=== PATIENT | female | born 1950 | race African-American/Black ===

== ENCOUNTER 2023-04-06 10:14 | Emergency (ER) | payer OTHER ==
--- OUTSIDE RECORDS SUMMARY | 2023-04-06 10:25 | XMS REPORT | Continuity of Care Document ---
:1950 Author Organization [facility] t Address [address] [place] [address] [address] [place] [address] Care Team Providers Name Role Phone Gustabo Muller MD Primary Care Physician AMILCAR MONAHAN Attending Clinician Unavailable JEFFREY MEJIA Attending Clinician Unavailable GUSTABO MULLER Attending Clinician Unavailable 2, [facility] Attending Clinician Unavailable Gustabo Muller MD Attending Clinician Sophia Pulido MD Attending Clinician Unknown, Attending Attending Clinician Unavailable SOPHIA PULIDO Attending Clinician Unavailable JOAO MOSES Attending Clinician Unavailable Joao Moses PA-C Attending Clinician Doctor Unassigned, [place] Attending Clinician Unavailable Marla Vernon MD Attending Clinician DEYA TAYLOR Attending Clinician Unavailable Deya Taylor MD Attending Clinician FAREED DE LEON Attending Clinician Unavailable Fareed De Leon MD Attending Clinician Tyron López CRNA Attending Clinician Britney Monsalve MD Attending Clinician [phone] Pob, [facility] Main Attending Clinician Unavailable Lab, Ang - Db Attending Clinician Unavailable MARLA VERNON Attending Clinician Unavailable NurseChris Attending Clinician Unavailable Emily Beltre MD Attending Clinician ELDA JARAMILLO Attending Clinician Unavailable Provider, [facility] Attending Clinician Unavailable Mandy Voss Attending Clinician MANDY SCHWARTZ Attending Clinician Unavailable Amilcar Monahan MD Attending Clinician Only, [facility] Test Attending Clinician Unavailable Jen Hills RN, Joao Attending Clinician Unavailable Lab, [facility] Fam Pob I Attending Clinician Unavailable Matilde Granado MD Attending Clinician Gramm PAMELLA, Kathy Alfaro Attending Clinician AMILCAR MONAHAN Admitting Clinician Unavailable JOAO MOSES Admitting Clinician Unavailable DEYA TAYLOR Admitting Clinician Unavailable FAREED DE LEON Admitting Clinician Unavailable Fareed De Leon MD Admitting Clinician Amilcar Monahan MD Admitting Clinician Matilde Granado MD Admitting Clinician Payers Payer Name Policy Type Policy Number Effective Date Expiration Date Gentry bella CRYSTAL/DENISA [id number] 2019 MEDICARE ADVANTAGE 00:00:00 Problems Condition Condition Condition Status Onset Resolution Last Treating Co mments Source Name Details Category Date Date Treatment Clinician Date Low Low Disease Active Univers vitamin D vitamin D 2-24 ity of level level 00:00: [place] [facility] Dizzy Dizzy Disease Active 0 Univers spells spells 5-24 ity of 00:00: [place] [facility] Chronic Chronic Disease Active 0 Univers allergic allergic 5-24 ity of rhinitis rhinitis 00:00: [place] 00 Medical Branch Chronic Chronic Disease Active 0 Univers midline midline 5-24 ity of low back low back 00:00: [place] pain pain 00 Medical without without Branch sciatica sciatica Arthritis, Arthritis, Disease Active 0 U nivers multiple multiple 5-24 ity of joint joint 00:00: [place] involvemen involvemen 00 Me dical t t Branch Gastroesop Gastroesop Disease Active 0 U nivers hageal hageal 5-24 ity of reflux reflux 00:00: [place] disease, disease, 00 Medica l unspecifie unspecifie Br anch d whether d whether esophagiti esophagiti s present s present Primary Primary Disease Active Univers insomnia insomnia -24 ity of 00:00: [place] [facility] Vertigo Vertigo Disease Active Univers 5-24 ity of 00:00: [place] [facility] Situationa Situationa Disease Active U nivers l mixed l mixed 01-23 ity of anxiety anxiety 00:00: [place] and and Medical depressive depressive Br anch disorder disorder Grief Grief Disease Active Univers 01-23 ity of 00:00: [place] [facility] Mass of Mass of Disease Active Overview: Univ ers subcutaneo subcutaneo 12-23 Formattin ity of us tissue us tissue 00:00: g of this [place] of back of back 00 note Medical might be Branch different from the original. Added automatic ally from request for surgery [id number] JÚNIOR JÚNIOR Disease Active Overview: Univer s (stress (stress 09-29 Formattin ity o f urinary urinary 00:00: g of this [place] incontinen incontinen 00 note Me dical ce, ce, might be Branch female) female) different from the original. Added automatic ally from request for surgery [id number] Cerebral Cerebral Disease Active Unive rs microvascu microvascu 6-21 it y of lar lar 00:00: [place] disease disease Medical Branch Chiari I Chiari I Disease Active Unive rs malformati malformati 6-21 it y of on on 00:00: [place] [facility] History of History of Disease Active U nivers total total 3-28 ity of hysterecto hysterecto 00:00[place] my with no my with no 00 Me dical history of history of Br anch abnormal abnormal cervical cervical Papanicola Papanicola ou smear ou smear Well woman Well woman Disease Active U nivers exam with exam with 3-28 ity of routine routine 00:00: [place] gynecologi gynecologi 00 Me dical zofia exam zofia exam Branch Hyperchole Hyperchole Disease Active U nivers sterolemia sterolemia 1-18 it y of 00:00: [place] [facility] Cataracts, Cataracts, Disease Active U nivers bilateral bilateral 1-09 ity of 00:00: [place] [facility] Diet-contr Diet-contr Disease Active U jesica olled type olled type 7-11 it y of 2 diabetes 2 diabetes 00:00[place] mellitus mellitus 00 [facility] [place] Essential Essential Disease Active Uni vers hypertensi hypertensi 3-10 it y of on on 00:00: [place] 00 Medical [place] Allergies, Adverse Reactions, Alerts Allergy Allergy Status Severity Reaction(s) Onset Inactive Treating Comm ents Source Name Type Date Date Clinician LISINOPR DRUG Active Dizziness Unive rs IL INGREDI 7- ity of 00:00: [place] [facility] Lisinopr Propensi Active Dizziness Uni vers il ty to 7 ity of adverse 00:00: [place] reaction [facility] s Branch CODEINE DRUG Active Unknown-Cmnt 2012-05 Uni vers INGREDI 1-20 ity of 00:00: [place] [facility] [place] Codeine Propensi Active Unknown - 2012-05 Univ ers ty to See comments -20 ity of adverse 00:00: [place] reaction [facility] s [place] Social History Social Habit Start Date Stop Date Quantity Comments Source Gender identity [facility]it y of [facility] intake 2023-03-14 2023-03-14 Current University of 00:00:00 00:00:00 non-drinker of [facility] alcohol [place] (finding) Exposure to 2022-07-10 2022-07-20 Not sure [facility] SARS-CoV-2 (event) 00:00:00 09:33:[address] [facility] History of Social 2022-07-17 2022-07-17 Univers ity of function 00:00:00 00:00:[address] [facility] Tobacco use and 2022-01-14 2022-01-14 Smokeless Universit y of exposure 00:00:00 00:00:00 tobacco non-user [facility] Sex Ass[birth year] At [birth year] Universit y of 00:00:00 00:00:[address] [facility] Smoking Status Start Date Stop Date Source Never smoked tobacco [facility] Medications Ordered Filled Start Stop Current Ordering Indication Dosage Frequency Signature Comments Components Source Medication Medication Date Date Medication? Clinician (SIG) Name Name spring 2022-05- No [id number] 40mg Univers ne 03-14 ity of acetonide 19:00: 18:08 [place] (KENALOG) 00 :00 Medical injection Branch 40 mg triamcinolo 2022-05- No [id number] 40mg 40 mg, Univers ne 03-14 Intramuscu ity of acetonide 19:00: 18:08 lar, ONCE, [place] (KENALOG) 00 :00 1 dose, On Medi zofia injection Sun Branch 40 mg 03/14/23 at 1400, Routine predniSONE 2022-05- Yes [id number] Take 4 Univers 10 mg 0-22 11-04 tablets by ity of tablet 00:00: 04:59 mouth [place] 00 :00 daily for Medical 2 days, Branch THEN 2 tablets daily for 5 days, THEN 1 tablet daily for 5 days. citalopram 2022-05 Yes [id number] 10mg Take 1 Univers 10 mg 0-04 tablet by ity of tablet 00:00: mouth in [place] 00 the Medical morning. Branch meclizine 2022-05 Yes [id number] 25mg Take 1 U nivers 25 mg 0-04 tablet by ity of tablet 00:00: mouth 3 [place] 00 (three) Medical times Branch daily as needed for Dizziness. losartan 25 2022-05 Yes [id number] 12.5mg Take 0.5 Univers mg tablet 0-04 9101 tablets by ity of 00:00: mouth in [place] 00 the Medical morning. Branch citalopram 2022-05 Yes [id number] 10mg Take 1 Univers 10 mg 0-04 tablet by ity of tablet 00:00: mouth in [place] 00 the Medical morning. Branch meclizine 2022-05 Yes [id number] 25mg Take 1 U nivers 25 mg 0-04 tablet by ity of tablet 00:00: mouth 3 [place] 00 (three) Medical times Branch daily as needed for Dizziness. losartan 25 2022-05 Yes [id number] 12.5mg Take 0.5 Univers mg tablet 0-04 9101 tablets by ity of 00:00: mouth in [place] 00 the Medical morning. Branch citalopram 2022-05 Yes [id number] 10mg Take 1 Univers 10 mg 0-04 tablet by ity of tablet 00:00: mouth in [place] 00 the Medical morning. Branch meclizine 2022-05 Yes [id number] 25mg Take 1 U nivers 25 mg 0-04 tablet by ity of tablet 00:00: mouth 3 [place] 00 (three) Medical times [place] daily as needed for Dizziness. losartan 2022-05 Yes [id number] 12.5mg Take 0.5 Univers mg tablet 0-04 9101 tablets by ity of 00:00: mouth in [place] the Medical morning. Branch citalopram 2022-05 Yes [id number] 10mg Take 1 Univers 10 mg 0-04 tablet by ity of tablet 00:00: mouth in [place] the Medical morning. Branch meclizine 2022-05 Yes [id number] 25mg Take 1 U nivers 25 mg 0-04 tablet by ity of tablet 00:00: mouth 3 [place] (three) Medical times [place] daily as needed for Dizziness. losartan 2022-05 Yes [id number] 12.5mg Take 0.5 Univers mg tablet 0-04 9101 tablets by ity of 00:00: mouth in [place] the Medical morning. Branch citalopram 2022-05 Yes [id number] 10mg Take 1 Univers 10 mg 0-04 tablet by ity of tablet 00:00: mouth in [place] the Medical morning. Branch meclizine 2022-05 Yes [id number] 25mg Take 1 U nivers 25 mg 0-04 tablet by ity of tablet 00:00: mouth 3 [place] [address] (three) Medical times [place] daily as needed for Dizziness. losartan 2022-05 Yes [id number] 12.5mg Take 0.5 Univers mg tablet 0-04 9101 tablets by ity of 00:00: mouth in [place] the Medical morning. Branch ROSUVASTATI 2022-05 Yes [id number] 5mg TAKE 1 Univers N 5 mg 0-03 TABLET BY ity of tablet 00:00: MOUTH AT [place] [address] BEDTIME Medical Branch ROSUVASTATI 2022-05 Yes [id number] 5mg TAKE 1 Univers N 5 mg 0-03 TABLET BY ity of tablet 00:00: MOUTH AT [place] [address] BEDTIME Medical Branch ROSUVASTATI 2022-05 Yes [id number] 5mg TAKE 1 Univers N 5 mg 0-03 TABLET BY ity of tablet 00:00: MOUTH AT [place] [address] BEDTIME Medical Branch ROSUVASTATI 2023-1 Yes [id number] 5mg TAKE 1 Univers N 5 mg 0-03 TABLET BY ity of tablet 00:00: MOUTH AT [place] BEDTIME Medical Branch ROSUVASTATI 3-1 Yes [id number] 5mg TAKE 1 Univers N 5 mg 0-03 TABLET BY ity of tablet 00:00: MOUTH AT [place] [facility] Medical Branch ROSUVASTATI 2022-1 Yes [id number] 5mg TAKE 1 Univers N 5 mg 0-03 TABLET BY ity of tablet 00:00: MOUTH AT [address] Branch Blood-Gluco 2023-0 Yes Use as Univ ers se Meter 3-21 directed ity of (ACCU-CHEK 00:00: [place] GUIDE Medical GLUCOSE Branch METER) Misc Blood-Gluco 2023-0 Yes Use as Univ ers se Meter 3-21 directed ity of (ACCU-CHEK 00:00: [place] GUIDE Medical GLUCOSE Branch METER) Misc Blood-Gluco 2023-0 Yes Use as Univ ers se Meter 3-21 directed ity of (ACCU-CHEK 00:00: [place] GUIDE Medical GLUCOSE Branch METER) Misc Blood-Gluco 2023-0 Yes Use as Univ ers se Meter 3-21 directed ity of (ACCU-CHEK 00:00: [place] GUIDE Medical GLUCOSE Branch METER) Misc Blood-Gluco 2023-0 Yes Use as Univ ers se Meter 3-21 directed ity of (ACCU-CHEK 00:00: [place] GUIDE Medical GLUCOSE Branch METER) Misc Blood-Gluco 2023-0 Yes Use as Univ ers se Meter 3-21 directed ity of (ACCU-CHEK 00:00: [place] GUIDE Medical GLUCOSE Branch METER) Misc Blood-Gluco 2023-0 Yes Use as Univ ers se Meter 3-21 directed ity of (ACCU-CHEK 00:00: [place] GUIDE 00 Medical GLUCOSE Branch METER) Misc Blood-Gluco 2023-0 Yes Use as Univ ers se Meter 3-21 directed ity of (ACCU-CHEK 00:00: [place] GUIDE 00 Medical GLUCOSE Branch METER) Misc Blood-Gluco 2023-0 Yes Use as Univ ers se Meter 3-21 directed ity of (ACCU-CHEK 00:00: [place] GUIDE 00 Medical GLUCOSE Branch METER) Misc Blood-Gluco 2023-0 Yes Use as Univ ers se Meter 3-21 directed ity of (ACCU-CHEK 00:00: [place] GUIDE 00 Medical GLUCOSE Branch METER) Misc Blood-Gluco Yes Use as Univ ers se Meter 3-21 directed ity of (ACCU-CHEK 00:00: [place] [facility] 00 Medical GLUCOSE Branch METER) Misc Blood-Gluco Yes Use as Univ ers se Meter 3-21 directed ity of (ACCU-CHEK 00:00: [facility] 00 Medical GLUCOSE Branch METER) Misc hydroCHLORO Yes [id number] 12.5mg Take 1 Univers thiazide 2-24 tablet by ity of 12.5 mg 00:00: mouth [place] tablet 00 every Medical morning. Branch aspirin 81 Yes [id number] 81mg Take 1 Univers mg chewable 2-24 tablet by ity of tablet 00:00: mouth [place] 00 daily with Medical breakfast. Branch rosuvastati Yes [id number] 5mg Take 1 Univers n 5 mg 2-24 tablet by ity of tablet 00:00: mouth at [place] 00 bedtime. Medical Branch omeprazole Yes [id number] 20mg Take 1 Univers 20 mg 2-24 capsule by ity of capsule 00:00: mouth in [place] 00 the Medical morning. Branch citalopram Yes [id number] 10mg Take 1 Univers 10 mg 2-24 tablet by ity of tablet 00:00: mouth in [place] 00 the Medical morning. Branch Diclofenac Yes [id number] Apply to Univers Sodium 2-24 103 area(s) 4 ity of (VOLTAREN) 00:00: (four) [place] 1 % gel 00 times Medical daily. Branch Apply 4 g qid Lancets Yes [id number] Check Un osmany Misc 2-24 9101 glucose ity of 00:00: once daily [place] 00 before Medical breakfast, Branch Diagnosis code E11.9 blood sugar Yes [id number] Check Univers diagnostic 2-24 9101 glucose ity of (ONETOUCH 00:00: once daily [place] ULTRA BLUE 00 before Medical TEST STRIP) breakfast; Br anch strip Diagnosis code E11.9 meclizine Yes [id number] 25mg Take 1 U nivers 25 mg 2-24 tablet by ity of tablet 00:00: mouth 3 [place] 00 (three) Medical times Branch daily as needed for Dizziness. Lidocaine 5 Yes [id number] Apply to Univers % cream 2-24 103 area(s) 2 ity of 00:00: (two) [place] 00 times Medical daily as Branch needed for Pain (scale 4-6). Apply 5g to affected areas BID PRN hydroCHLORO Yes [id number] 12.5mg Take 1 Univers thiazide 2-24 tablet by ity of 12.5 mg 00:00: mouth [place] tablet 00 every Medical morning. Branch aspirin 81 Yes [id number] 81mg Take 1 Univers mg chewable 2-24 tablet by ity of tablet 00:00: mouth [place] 00 daily with Medical breakfast. Branch rosuvastati Yes [id number] 5mg Take 1 Univers n 5 mg 2-24 tablet by ity of tablet 00:00: mouth at [place] 00 bedtime. Medical Branch omeprazole Yes [id number] 20mg Take 1 Univers 20 mg 2-24 capsule by ity of capsule 00:00: mouth in [place] 00 the Medical morning. Branch citalopram Yes [id number] 10mg Take 1 Univers 10 mg 2-24 tablet by ity of tablet 00:00: mouth in [place] 00 the Medical morning. Branch Diclofenac Yes [id number] Apply to Univers Sodium 2-24 103 area(s) 4 ity of (VOLTAREN) 00:00: (four) [place] 1 % gel 00 times Medical daily. Branch Apply 4 g qid Lancets Yes [id number] Check Un osmany Misc 2-24 9101 glucose ity of 00:00: once daily [place] 00 before Medical breakfast, Branch Diagnosis code E11.9 blood sugar Yes [id number] Check Univers diagnostic 2-24 9101 glucose ity of (ONETOUCH 00:00: once daily [place] ULTRA BLUE 00 before Medical TEST STRIP) breakfast; Br anch strip Diagnosis code E11.9 meclizine Yes [id number] 25mg Take 1 U nivers 25 mg 2-24 tablet by ity of tablet 00:00: mouth 3 [place] 00 (three) Medical times Branch daily as needed for Dizziness. Lidocaine 5 Yes [id number] Apply to Univers % cream 2-24 103 area(s) 2 ity of 00:00: (two) [place] 00 times Medical daily as Branch needed for Pain (scale 4-6). Apply 5g to affected areas BID PRN hydroCHLORO Yes [id number] 12.5mg Take 1 Univers thiazide 2-24 tablet by ity of 12.5 mg 00:00: mouth [place] tablet 00 every Medical morning. Branch aspirin 81 0 Yes [id number] 81mg Take 1 Univers mg chewable 2-24 tablet by ity of tablet 00:00: mouth [place] 00 daily with Medical breakfast. Branch rosuvastati Yes [id number] 5mg Take 1 Univers n 5 mg 2-24 tablet by ity of tablet 00:00: mouth at [place] 00 bedtime. Medical Branch omeprazole Yes [id number] 20mg Take 1 Univers 20 mg 2-24 capsule by ity of capsule 00:00: mouth in [place] 00 the Medical morning. Branch citalopram Yes [id number] 10mg Take 1 Univers 10 mg 2-24 tablet by ity of tablet 00:00: mouth in [place] 00 the Medical morning. Branch Diclofenac Yes [id number] Apply to Univers Sodium 2-24 103 area(s) 4 ity of (VOLTAREN) 00:00: (four) [place] 1 % gel 00 times Medical daily. Branch Apply 4 g qid Lancets Yes [id number] Check Un osmany Misc 2-24 9101 glucose ity of 00:00: once daily [place] 00 before Medical breakfast, Branch Diagnosis code E11.9 blood sugar Yes [id number] Check Univers diagnostic 2-24 9101 glucose ity of (ONETOUCH 00:00: once daily [place] ULTRA BLUE 00 before Medical TEST STRIP) breakfast; Br anch strip Diagnosis code E11.9 meclizine Yes [id number] 25mg Take 1 U nivers 25 mg 2-24 tablet by ity of tablet 00:00: mouth 3 [place] 00 (three) Medical times Branch daily as needed for Dizziness. Lidocaine 5 Yes [id number] Apply to Univers % cream 2-24 103 area(s) 2 ity of 00:00: (two) [place] 00 times Medical daily as Branch needed for Pain (scale 4-6). Apply 5g to affected areas BID PRN hydroCHLORO Yes [id number] 12.5mg Take 1 Univers thiazide 2-24 tablet by ity of 12.5 mg 00:00: mouth [place] tablet 00 every Medical morning. Branch aspirin 81 0 Yes [id number] 81mg Take 1 Univers mg chewable 2-24 tablet by ity of tablet 00:00: mouth [place] 00 daily with Medical breakfast. Branch rosuvastati Yes [id number] 5mg Take 1 Univers n 5 mg 2-24 tablet by ity of tablet 00:00: mouth at [place] 00 bedtime. Medical Branch omeprazole Yes [id number] 20mg Take 1 Univers 20 mg 2-24 capsule by ity of capsule 00:00: mouth in [place] 00 the Medical morning. Branch citalopram Yes [id number] 10mg Take 1 Univers 10 mg 2-24 tablet by ity of tablet 00:00: mouth in [place] 00 the Medical morning. Branch Diclofenac Yes [id number] Apply to Univers Sodium 2-24 103 area(s) 4 ity of (VOLTAREN) 00:00: (four) [place] 1 % gel 00 times Medical daily. Branch Apply 4 g qid Lancets Yes [id number] Check Un osmany Misc 2-24 9101 glucose ity of 00:00: once daily [place] 00 before Medical breakfast, Branch Diagnosis code E11.9 blood sugar 0 Yes [id number] Check Univers diagnostic 2-24 9101 glucose ity of (ONETOUCH 00:00: once daily [place] ULTRA BLUE 00 before Medical TEST STRIP) breakfast; Br anch strip Diagnosis code E11.9 meclizine 0 Yes [id number] 25mg Take 1 U nivers 25 mg 2-24 tablet by ity of tablet 00:00: mouth 3 [place] 00 (three) Medical times Branch daily as needed for Dizziness. Lidocaine 5 0 Yes [id number] Apply to Univers % cream 2-24 103 area(s) 2 ity of 00:00: (two) [place] 00 times Medical daily as Branch needed for Pain (scale 4-6). Apply 5g to affected areas BID PRN hydroCHLORO Yes [id number] 12.5mg Take 1 Univers thiazide 2-24 tablet by ity of 12.5 mg 00:00: mouth [place] tablet 00 every Medical morning. Branch aspirin 81 0 Yes [id number] 81mg Take 1 Univers mg chewable 2-24 tablet by ity of tablet 00:00: mouth [place] 00 daily with Medical breakfast. Branch rosuvastati Yes [id number] 5mg Take 1 Univers n 5 mg 2-24 tablet by ity of tablet 00:00: mouth at [place] 00 bedtime. Medical Branch omeprazole Yes [id number] 20mg Take 1 Univers 20 mg 2-24 capsule by ity of capsule 00:00: mouth in [place] 00 the Medical morning. Branch citalopram Yes [id number] 10mg Take 1 Univers 10 mg 2-24 tablet by ity of tablet 00:00: mouth in [place] 00 the Medical morning. Branch Diclofenac Yes [id number] Apply to Univers Sodium 2-24 103 area(s) 4 ity of (VOLTAREN) 00:00: (four) [place] 1 % gel 00 times Medical daily. Branch Apply 4 g qid Lancets Yes [id number] Check Un osmany Misc 2-24 9101 glucose ity of 00:00: once daily [place] 00 before Medical breakfast, Branch Diagnosis code E11.9 blood sugar Yes [id number] Check Univers diagnostic 2-24 9101 glucose ity of (ONETOUCH 00:00: once daily [place] ULTRA BLUE 00 before Medical TEST STRIP) breakfast; Br anch strip Diagnosis code E11.9 meclizine Yes [id number] 25mg Take 1 U nivers 25 mg 2-24 tablet by ity of tablet 00:00: mouth 3 [place] 00 (three) Medical times Branch daily as needed for Dizziness. Lidocaine 5 Yes [id number] Apply to Univers % cream 2-24 103 area(s) 2 ity of 00:00: (two) [place] 00 times Medical daily as Branch needed for Pain (scale 4-6). Apply 5g to affected areas BID PRN hydroCHLORO Yes [id number] 12.5mg Take 1 Univers thiazide 2-24 tablet by ity of 12.5 mg 00:00: mouth [place] tablet 00 every Medical morning. Branch aspirin 81 Yes [id number] 81mg Take 1 Univers mg chewable 2-24 tablet by ity of tablet 00:00: mouth [place] 00 daily with Medical breakfast. Branch rosuvastati Yes [id number] 5mg Take 1 Univers n 5 mg 2-24 tablet by ity of tablet 00:00: mouth at [place] 00 bedtime. Medical Branch omeprazole Yes [id number] 20mg Take 1 Univers 20 mg 2-24 capsule by ity of capsule 00:00: mouth in [place] 00 the Medical morning. Branch citalopram Yes [id number] 10mg Take 1 Univers 10 mg 2-24 tablet by ity of tablet 00:00: mouth in [place] 00 the Medical morning. Branch Diclofenac Yes [id number] Apply to Univers Sodium 2-24 103 area(s) 4 ity of (VOLTAREN) 00:00: (four) [place] 1 % gel 00 times Medical daily. Branch Apply 4 g qid Lancets Yes [id number] Check Un osmany Misc 2-24 9101 glucose ity of 00:00: once daily [place] 00 before Medical breakfast, Branch Diagnosis code E11.9 blood sugar Yes [id number] Check Univers diagnostic 2-24 9101 glucose ity of (ONETOUCH 00:00: once daily [place] ULTRA BLUE 00 before Medical TEST STRIP) breakfast; Br anch strip Diagnosis code E11.9 meclizine Yes [id number] 25mg Take 1 U nivers 25 mg 2-24 tablet by ity of tablet 00:00: mouth 3 [place] 00 (three) Medical times Branch daily as needed for Dizziness. Lidocaine 5 Yes [id number] Apply to Univers % cream 2-24 103 area(s) 2 ity of 00:00: (two) [place] 00 times Medical daily as Branch needed for Pain (scale 4-6). Apply 5g to affected areas BID PRN hydroCHLORO Yes [id number] 12.5mg Take 1 Univers thiazide 2-24 tablet by ity of 12.5 mg 00:00: mouth [place] tablet 00 every Medical morning. Branch aspirin 81 Yes [id number] 81mg Take 1 Univers mg chewable 2-24 tablet by ity of tablet 00:00: mouth [place] 00 daily with Medical breakfast. Branch rosuvastati Yes [id number] 5mg Take 1 Univers n 5 mg 2-24 tablet by ity of tablet 00:00: mouth at [place] 00 bedtime. Medical Branch omeprazole Yes [id number] 20mg Take 1 Univers 20 mg 2-24 capsule by ity of capsule 00:00: mouth in [place] 00 the Medical morning. Branch citalopram Yes [id number] 10mg Take 1 Univers 10 mg 2-24 tablet by ity of tablet 00:00: mouth in [place] 00 the Medical morning. Branch Diclofenac Yes [id number] Apply to Univers Sodium 2-24 103 area(s) 4 ity of (VOLTAREN) 00:00: (four) [place] 1 % gel 00 times Medical daily. Branch Apply 4 g qid Lancets Yes [id number] Check Un osmany Misc 2-24 9101 glucose ity of 00:00: once daily [place] 00 before Medical breakfast, Branch Diagnosis code E11.9 blood sugar Yes [id number] Check Univers diagnostic 2-24 9101 glucose ity of (ONETOUCH 00:00: once daily [place] ULTRA BLUE 00 before Medical TEST STRIP) breakfast; Br anch strip Diagnosis code E11.9 meclizine Yes [id number] 25mg Take 1 U nivers 25 mg 2-24 tablet by ity of tablet 00:00: mouth 3 [place] 00 (three) Medical times Branch daily as needed for Dizziness. Lidocaine 5 Yes [id number] Apply to Univers % cream 2-24 103 area(s) 2 ity of 00:00: (two) [place] 00 times Medical daily as Branch needed for Pain (scale 4-6). Apply 5g to affected areas BID PRN hydroCHLORO Yes [id number] 12.5mg Take 1 Univers thiazide 2-24 tablet by ity of 12.5 mg 00:00: mouth [place] tablet 00 every Medical morning. Branch aspirin 81 Yes [id number] 81mg Take 1 [facility] mg chewable 2-24 tablet by ity of tablet 00:00: mouth [place] 00 daily with Medical breakfast. Branch rosuvastati Yes [id number] 5mg Take 1 [facility] n 5 mg 2-24 tablet by ity of tablet 00:00: mouth at [place] 00 bedtime. Medical Branch omeprazole Yes [id number] 20mg Take 1 [facility] 20 mg 2-24 capsule by ity of capsule 00:00: mouth in [place] 00 the Medical morning. Branch citalopram Yes [id number] 10mg Take 1 [facility] 10 mg 2-24 tablet by ity of tablet 00:00: mouth in [place] 00 the Medical morning. Branch Diclofenac Yes [id number] Apply to [facility] Sodium 2-24 103 area(s) 4 ity of (VOLTAREN) 00:00: (four) [place] 1 % gel 00 times Medical daily. Branch Apply 4 g qid Lancets Yes [id number] Check Un osmany Misc 2-24 9101 glucose ity of 00:00: once daily [place] 00 before Medical breakfast, Branch Diagnosis code E11.9 blood sugar Yes [id number] Check [facility] diagnostic 2-24 9101 glucose ity of (ONETOUCH 00:00: once daily [place] ULTRA BLUE 00 before Medical TEST STRIP) breakfast; Br anch strip Diagnosis code E11.9 meclizine Yes [id number] 25mg Take 1 [facility] 25 mg 2-24 tablet by ity of tablet 00:00: mouth 3 [place] 00 (three) Medical times Branch daily as needed for Dizziness. Lidocaine 5 Yes [id number] Apply to [facility] % cream 2-24 103 area(s) 2 ity of 00:00: (two) [place] 00 times Medical daily as Branch needed for Pain (scale 4-6). Apply 5g to affected areas BID PRN hydroCHLORO Yes [id number] 12.5mg Take 1 [facility] thiazide 2-24 tablet by ity of 12.5 mg 00:00: mouth [place] tablet 00 every Medical morning. Branch aspirin 81 0 Yes [id number] 81mg Take 1 [facility] mg chewable 2-24 tablet by ity of tablet 00:00: mouth [place] 00 daily with Medical breakfast. Branch rosuvastati Yes [id number] 5mg Take 1 [facility] n 5 mg 2-24 tablet by ity of tablet 00:00: mouth at [place] 00 bedtime. Medical Branch omeprazole Yes [id number] 20mg Take 1 [facility] 20 mg 2-24 capsule by ity of capsule 00:00: mouth in [place] 00 the Medical morning. Branch citalopram Yes [id number] 10mg Take 1 [facility] 10 mg 2-24 tablet by ity of tablet 00:00: mouth in [place] 00 the Medical morning. Branch Diclofenac Yes [id number] Apply to [facility] Sodium 2-24 103 area(s) 4 ity of (VOLTAREN) 00:00: (four) [place] 1 % gel 00 times Medical daily. Branch Apply 4 g qid Lancets Yes [id number] Check Un osmany Misc 2-24 9101 glucose ity of 00:00: once daily [place] 00 before Medical breakfast, Branch Diagnosis code E11.9 blood sugar Yes [id number] Check [facility] diagnostic 2-24 9101 glucose ity of (ONETOUCH 00:00: once daily [place] ULTRA BLUE 00 before Medical TEST STRIP) breakfast; Br anch strip Diagnosis code E11.9 meclizine Yes [id number] 25mg Take 1 [facility] 25 mg 2-24 tablet by ity of tablet 00:00: mouth 3 [place] 00 (three) Medical times Branch daily as needed for Dizziness. Lidocaine 5 Yes [id number] Apply to [facility] % cream 2-24 103 area(s) 2 ity of 00:00: (two) [place] 00 times Medical daily as Branch needed for Pain (scale 4-6). Apply 5g to affected areas BID PRN hydroCHLORO Yes [id number] 12.5mg Take 1 [facility] thiazide 2-24 tablet by ity of 12.5 mg 00:00: mouth [place] tablet 00 every Medical morning. Branch aspirin 81 0 Yes [id number] 81mg Take 1 [facility] mg chewable 2-24 tablet by ity of tablet 00:00: mouth [place] 00 daily with Medical breakfast. Branch rosuvastati Yes [id number] 5mg Take 1 [facility] n 5 mg 2-24 tablet by ity of tablet 00:00: mouth at [place] 00 bedtime. Medical Branch omeprazole Yes [id number] 20mg Take 1 [facility] 20 mg 2-24 capsule by ity of capsule 00:00: mouth in [place] 00 the Medical morning. Branch citalopram Yes [id number] 10mg Take 1 [facility] 10 mg 2-24 tablet by ity of tablet 00:00: mouth in [place] 00 the Medical morning. Branch Diclofenac Yes [id number] Apply to [facility] Sodium 2-24 103 area(s) 4 ity of (VOLTAREN) 00:00: (four) [place] 1 % gel 00 times Medical daily. Branch Apply 4 g qid Lancets Yes [id number] Check Un osmany Misc 2-24 9101 glucose ity of 00:00: once daily [place] 00 before Medical breakfast, Branch Diagnosis code E11.9 blood sugar Yes [id number] Check [facility] diagnostic 2-24 9101 glucose ity of (ONETOUCH 00:00: once daily [place] ULTRA BLUE 00 before Medical TEST STRIP) breakfast; Br anch strip Diagnosis code E11.9 meclizine Yes [id number] 25mg Take 1 [facility] 25 mg 2-24 tablet by ity of tablet 00:00: mouth 3 [place] 00 (three) Medical times Branch daily as needed for Dizziness. Lidocaine 5 Yes [id number] Apply to [facility] % cream 2-24 103 area(s) 2 ity of 00:00: (two) [place] 00 times Medical daily as Branch needed for Pain (scale 4-6). Apply 5g to affected areas BID PRN hydroCHLORO Yes [id number] 12.5mg Take 1 [facility] thiazide 2-24 tablet by ity of 12.5 mg 00:00: mouth [place] tablet 00 every Medical morning. Branch aspirin 81 Yes [id number] 81mg Take 1 [facility] mg chewable 2-24 tablet by ity of tablet 00:00: mouth [place] 00 daily with Medical breakfast. Branch rosuvastati Yes [id number] 5mg Take 1 [facility] n 5 mg 2-24 tablet by ity of tablet 00:00: mouth at [place] 00 bedtime. Medical Branch omeprazole Yes [id number] 20mg Take 1 [facility] 20 mg 2-24 capsule by ity of capsule 00:00: mouth in [place] 00 the Medical morning. Branch citalopram Yes [id number] 10mg Take 1 [facility] 10 mg 2-24 tablet by ity of tablet 00:00: mouth in [place] 00 the Medical morning. Branch Diclofenac Yes [id number] Apply to [facility] Sodium 2-24 103 area(s) 4 ity of (VOLTAREN) 00:00: (four) [place] 1 % gel 00 times Medical daily. Branch Apply 4 g qid Lancets Yes [id number] Check Un osmany Misc 2-24 9101 glucose ity of 00:00: once daily [place] 00 before Medical breakfast, Branch Diagnosis code E11.9 blood sugar Yes [id number] Check [facility] diagnostic 2-24 9101 glucose ity of (ONETOUCH 00:00: once daily [place] ULTRA BLUE 00 before Medical TEST STRIP) breakfast; Br anch strip Diagnosis code E11.9 meclizine Yes [id number] 25mg Take 1 [facility] 25 mg 2-24 tablet by ity of tablet 00:00: mouth 3 [place] 00 (three) Medical times Branch daily as needed for Dizziness. Lidocaine 5 Yes [id number] Apply to [facility] % cream 2-24 103 area(s) 2 ity of 00:00: (two) [place] 00 times Medical daily as Branch needed for Pain (scale 4-6). Apply 5g to affected areas BID PRN hydroCHLORO 0 Yes [id number] 12.5mg Take 1 [facility] thiazide 2-24 tablet by ity of 12.5 mg 00:00: mouth [place] tablet 00 every Medical morning. Branch aspirin 81 0 Yes [id number] 81mg Take 1 [facility] mg chewable 2-24 tablet by ity of tablet 00:00: mouth [place] 00 daily with Medical breakfast. Branch omeprazole 2022-0 Yes [id number] 20mg Take 1 [facility] 20 mg 2-24 capsule by ity of capsule 00:00: mouth in [place] 00 the Medical morning. Branch citalopram Yes [id number] 10mg Take 1 [facility] 10 mg 2-24 tablet by ity of tablet 00:00: mouth in [place] 00 the Medical morning. Branch Diclofenac Yes [id number] Apply to [facility] Sodium 2-24 103 area(s) 4 ity of (VOLTAREN) 00:00: (four) [place] 1 % gel 00 times Medical daily. Branch Apply 4 g qid Lancets 2022- Yes [id number] Check Un osmany Misc 2-24 9101 glucose ity of 00:00: once daily [place] 00 before Medical breakfast, Branch Diagnosis code E11.9 blood sugar 2022-0 Yes [id number] Check [facility] diagnostic 2-24 9101 glucose ity of (ONETOUCH 00:00: once daily [place] ULTRA BLUE 00 before Medical TEST STRIP) breakfast; Br anch strip Diagnosis code E11.9 meclizine 2022-0 Yes [id number] 25mg Take 1 [facility] nivers 25 mg 2-24 tablet by ity of tablet 00:00: mouth 3 [place] 00 (three) Medical times Branch daily as needed for Dizziness. Lidocaine 5 2022-0 Yes [id number] Apply to [facility] % cream 2-24 103 area(s) 2 ity of 00:00: (two) [place] 00 times Medical daily as Branch needed for Pain (scale 4-6). Apply 5g to affected areas BID PRN hydroCHLORO 0 Yes [id number] 12.5mg Take 1 [facility] thiazide 2-24 tablet by ity of 12.5 mg 00:00: mouth [place] tablet 00 every Medical morning. Branch aspirin 81 2022-0 Yes [id number] 81mg Take 1 [facility] mg chewable 2-24 tablet by ity of tablet 00:00: mouth [place] 00 daily with Medical breakfast. Branch Diclofenac 2022-0 Yes [id number] Apply to [facility] Sodium 2-24 103 area(s) 4 ity of (VOLTAREN) 00:00: (four) [place] 1 % gel 00 times Medical daily. Branch Apply 4 g qid Lancets 2022-0 Yes [id number] Check Un osmany Misc 2-24 9101 glucose ity of 00:00: once daily [place] 00 before Medical breakfast, Branch Diagnosis code E11.9 blood sugar 2022-0 Yes [id number] Check [facility] diagnostic 2-24 9101 glucose ity of (ONETOUCH 00:00: once daily [place] ULTRA BLUE 00 before Medical TEST STRIP) breakfast; Br anch strip Diagnosis code E11.9 Lidocaine 5 2022-0 Yes [id number] Apply to [facility] % cream 2-24 103 area(s) 2 ity of 00:00: (two) [place] 00 times Medical daily as Branch needed for Pain (scale 4-6). Apply 5g to affected areas BID PRN hydroCHLORO 2022-0 Yes [id number] 12.5mg Take 1 [facility] thiazide 2-24 tablet by ity of 12.5 mg 00:00: mouth [place] tablet 00 every Medical morning. Branch aspirin 81 2022-0 Yes [id number] 81mg Take 1 [facility] mg chewable 2-24 tablet by ity of tablet 00:00: mouth [place] 00 daily with Medical breakfast. Branch Diclofenac 2022-0 Yes [id number] Apply to [facility] Sodium 2-24 103 area(s) 4 ity of (VOLTAREN) 00:00: (four) [place] 1 % gel 00 times Medical daily. Branch Apply 4 g qid Lancets 2022-0 Yes [id number] Check Un osmany Misc 2-24 9101 glucose ity of 00:00: once daily [place] 00 before Medical breakfast, Branch Diagnosis code E11.9 blood sugar 2022-0 Yes [id number] Check [facility] diagnostic 2-24 9101 glucose ity of (ONETOUCH 00:00: once daily [place] ULTRA BLUE 00 before Medical TEST STRIP) breakfast; Br anch strip Diagnosis code E11.9 Lidocaine 5 2022-0 Yes [id number] Apply to [facility] % cream 2-24 103 area(s) 2 ity of 00:00: (two) [place] 00 times Medical daily as Branch needed for Pain (scale 4-6). Apply 5g to affected areas BID PRN hydroCHLORO 2022-0 Yes [id number] 12.5mg Take 1 [facility] thiazide 2-24 tablet by ity of 12.5 mg 00:00: mouth [place] tablet 00 every Medical morning. Branch aspirin 81 2022-0 Yes [id number] 81mg Take 1 [facility] mg chewable 2-24 tablet by ity of tablet 00:00: mouth [place] 00 daily with Medical breakfast. Branch Diclofenac 2022-0 Yes [id number] Apply to [facility] Sodium 2-24 103 area(s) 4 ity of (VOLTAREN) 00:00: (four) [place] 1 % gel 00 times Medical daily. Branch Apply 4 g qid Lancets 2022-0 Yes [id number] Check Un osmany Misc 2-24 9101 glucose ity of 00:00: once daily [place] 00 before Medical breakfast, Branch Diagnosis code E11.9 blood sugar 2022-0 Yes [id number] Check [facility] diagnostic 2-24 9101 glucose ity of (ONETOUCH 00:00: once daily [place] ULTRA BLUE 00 before Medical TEST STRIP) breakfast; Br anch strip Diagnosis code E11.9 Lidocaine 5 2022-0 Yes [id number] Apply to [facility] % cream 2-24 103 area(s) 2 ity of 00:00: (two) [place] 00 times Medical daily as Branch needed for Pain (scale 4-6). Apply 5g to affected areas BID PRN hydroCHLORO 2022-0 Yes [id number] 12.5mg Take 1 [facility] thiazide 2-24 tablet by ity of 12.5 mg 00:00: mouth [place] tablet 00 every Medical morning. Branch aspirin 81 2022-0 Yes [id number] 81mg Take 1 [facility] mg chewable 2-24 tablet by ity of tablet 00:00: mouth [place] 00 daily with Medical breakfast. Branch Diclofenac 2022-0 Yes [id number] Apply to [facility] Sodium 2-24 103 area(s) 4 ity of (VOLTAREN) 00:00: (four) [place] 1 % gel 00 times Medical daily. Branch Apply 4 g qid Lancets 2022-0 Yes [id number] Check Un osmany Misc 2-24 9101 glucose ity of 00:00: once daily [place] 00 before Medical breakfast, Branch Diagnosis code E11.9 blood sugar 2022-0 Yes [id number] Check [facility] diagnostic 2-24 9101 glucose ity of (ONETOUCH 00:00: once daily [place] ULTRA BLUE 00 before Medical TEST STRIP) breakfast; Br anch strip Diagnosis code E11.9 Lidocaine 5 2022-0 Yes [id number] Apply to [facility] % cream 2-24 103 area(s) 2 ity of 00:00: (two) [place] 00 times Medical daily as Branch needed for Pain (scale 4-6). Apply 5g to affected areas BID PRN hydroCHLORO 2022-0 Yes [id number] 12.5mg Take 1 [facility] thiazide 2-24 tablet by ity of 12.5 mg 00:00: mouth [place] tablet 00 every Medical morning. Branch aspirin 81 2022-0 Yes [id number] 81mg Take 1 [facility] mg chewable 2-24 tablet by ity of tablet 00:00: mouth [place] 00 daily with Medical breakfast. Branch Diclofenac Yes [id number] Apply to [facility] Sodium 2-24 103 area(s) 4 ity of (VOLTAREN) 00:00: (four) [place] 1 % gel 00 times Medical daily. Branch Apply 4 g qid Lancets Yes [id number] Check Un osmany Misc 2-24 9101 glucose ity of 00:00: once daily [place] 00 before Medical breakfast, Branch Diagnosis code E11.9 blood sugar 2022- Yes [id number] Check [facility] diagnostic 2-24 9101 glucose ity of (ONETOUCH 00:00: once daily [place] ULTRA BLUE 00 before Medical TEST STRIP) breakfast; Br anch strip Diagnosis code E11.9 Lidocaine 5 2022- Yes [id number] Apply to [facility] % cream 2-24 103 area(s) 2 ity of 00:00: (two) [place] 00 times Medical daily as Branch needed for Pain (scale 4-6). Apply 5g to affected areas BID PRN omeprazole 2022-2022- No [id number] 20mg Take 1 [facility] 20 mg 2-24 10-04 capsule by ity of capsule 00:00: 00:00 mouth in [place] 00 :00 the Medical morning. Branch citalopram 2022- No [id number] 10mg Take 1 [facility] 10 mg 2-24 10-04 tablet by ity of tablet 00:00: 00:00 mouth in [place] 00 :00 the Medical morning. Branch meclizine 2022- No [id number] 25mg Take 1 [facility] 25 mg 2-24 10-04 tablet by ity of tablet 00:00: 00:00 mouth 3 [place] 00 :00 (three) Medical times Branch daily as needed for Dizziness. omeprazole 2022- No [id number] 20mg Take 1 [facility] 20 mg 2-24 10-04 capsule by ity of capsule 00:00: 00:00 mouth in [place] 00 :00 the Medical morning. Branch citalopram 2022- No [id number] 10mg Take 1 [facility] 10 mg 2-24 10-04 tablet by ity of tablet 00:00: 00:00 mouth in [place] 00 :00 the Medical morning. Branch meclizine 2022- No [id number] 25mg Take 1 [facility] 25 mg 2-24 - tablet by ity of tablet 00:00: 00:00 mouth 3 [place] 00 :00 (three) Medical times Branch daily as needed for Dizziness. rosuvastati No [id number] 5mg Take 1 [facility] n 5 mg 2-24 - tablet by ity of tablet 00:00: 00:00 mouth at [place] 00 :00 bedtime. Medical Branch azithromyci 2022- No 500mg 500 mg, U nivers n 05-26 Oral, ity of (ZITHROMAX) 12:15: 12:21 ONCE, 1 [place] tablet 500 00 :00 dose, On Medic al mg e 05/26/22 Branch at 0615, ANURADHA
Re ason for Anti-Infec tive: Documented Infection< br>Documen ben Infection Site: Respirator y
Durat ion of Therapy: 7 days cefTRIAXone No 1000mg 1,000 mg, [facility] (ROCEPHIN) 05-26 IV ity of 1,000 mg in 12:15: 12:51 Piggyback, [place] NaCl 0.9% 00 :00 ONCE, 1 Medical (NS) 50 mL dose, On Branc h MINI-BAG Wed05/26/22 at 0615, Administer over 30 Minutes, 50 mL
R joann for Anti-Infec tive: Documented Infection< br>Documen ben Infection Site: Respirator y
Du ration of Therapy: 7 days proMETHazin No 25mg 25 mg, IV [facility] e 05-26 Piggyback, ity of (PHENERGAN) 12:00: 12:01 ONCE, 1 [place] 25 mg in 00 :00 dose, On Medical NaCl 0.9% 05/26/22 Bran ch (NS) 50 mL at 0600, piggyback 50 mL NaCl 0.9% 2022- No 500mL at 999 Univ ers (NS) bolus 05-26 mL/hr, 500 it y of infusion 11:45: 11:43 mL, IV [place] 500 mL 00 :00 Piggyback, Medical ONCE, 1 Branch dose, On Wed05/26/22 at 0545, STAT ketorolac 2022- No 30mg 30 mg, Unive rs (TORADOL) 05-26 Slow IV ity of injection 11:45: 11:03 Push, [place] 30 mg 00 :00 ONCE, 1 Medical dose, On Branch Wed05/26/22 at 0545, Routine diphenhydrA 2022- No 25mg 25 mg, Uni vers MINE 05-26 Slow IV ity of (BENADRYL) 11:00: 11:03 Push, [place] injection 00 :00 ONCE, 1 Medical 25 mg dose, On Branch Wed05/26/22 at 0500, STAT azithromyci 0 Yes [id number] 250mg Take 1 [facility] n 250 mg 1-03 tablet by ity of tablet 00:00: mouth in [place] 00 the Medical morning. Branch benzonatate 2022-0 Yes [id number] 100mg Take 1 [facility] 100 mg 1-03 capsule by ity of capsule 00:00: mouth 3 [place] [address] (three) Medical times Branch daily as needed for Cough. azithromyci 2022-0 Yes [id number] 250mg Take 1 [facility] n 250 mg 1-03 tablet by ity of tablet 00:00: mouth in [place] 00 the Medical morning. Branch benzonatate 2022-0 Yes [id number] 100mg Take 1 [facility] 100 mg 1-03 capsule by ity of capsule 00:00: mouth 3 [place] [address] (three) Medical times Branch daily as needed for Cough. azithromyci 2022-0 Yes [id number] 250mg Take 1 [facility] n 250 mg 1-03 tablet by ity of tablet 00:00: mouth in [place] 00 the Medical morning. Branch benzonatate 2022-0 Yes [id number] 100mg Take 1 [facility] 100 mg 1-03 capsule by ity of capsule 00:00: mouth 3 [place] 00 (three) Medical times Branch daily as needed for Cough. azithromyci 2022-0 2022- No [id number] 250mg Take 1 [facility] n 250 mg 1-03 02-24 tablet by ity o f tablet 00:00: 00:00 mouth in [place] 00 :00 the Medical morning. Branch benzonatate 2022022- No [id number] 100mg Take 1 [facility] 100 mg 05-26 capsule by ity of capsule 00:00: 00:00 mouth 3 [place] 00 :00 (three) Medical times Branch daily as needed for Cough. azithromyci 2022- No [id number] 250mg Take 1 [facility] n 250 mg 05-2624 tablet by ity o f tablet 00:00: 00:00 mouth in [place] 00 :00 the Medical morning. Branch benzonatate 2022- No [id number] 100mg Take 1 [facility] 100 mg 05-26 capsule by ity of capsule 00:00: 00:00 mouth 3 [place] 00 :00 (three) Medical times Branch daily as needed for Cough. azithromyci 2022- No [id number] 250mg Take 1 [facility] n 250 mg 05-26 tablet by ity o f tablet 00:00: 00:00 mouth in [place] 00 :00 the Medical morning. Branch benzonatate 2022- No [id number] 100mg Take 1 [facility] 100 mg 05-26 capsule by ity of capsule 00:00: 00:00 mouth 3 [place] 00 :00 (three) Medical times Branch daily as needed for Cough. azithromyci 2022- No [id number] 250mg Take 1 [facility] n 250 mg 05-26 tablet by ity o f tablet 00:00: 00:00 mouth in [place] 00 :00 the Medical morning. Branch benzonatate 2022- No [id number] 100mg Take 1 [facility] 100 mg 05-26 capsule by ity of capsule 00:00: 00:00 mouth 3 [place] 00 :00 (three) Medical times Branch daily as needed for Cough. ROSUVASTATI 2021-05 Yes [id number] 10mg TAKE 1 [facility] N 10 mg 0-19 TABLET BY ity of tablet 00:00: MOUTH AT [place] [address] BEDTIME Medical Branch ROSUVASTATI 2021-05 Yes [id number] 10mg TAKE 1 [facility] N 10 mg 0-19 TABLET BY ity of tablet 00:00: MOUTH AT [place] [address] BEDTIME Medical Branch ROSUVASTATI 2021-05 Yes [id number] 10mg TAKE 1 [facility] N 10 mg 0-19 TABLET BY ity of tablet 00:00: MOUTH AT [place] 00 BEDTIME Medical Branch ROSUVASTATI 2021-05 Yes [id number] 10mg TAKE 1 [facility] N 10 mg 0-19 TABLET BY ity of tablet 00:00: MOUTH AT [place] 00 BEDTIME Medical Branch ROSUVASTATI 2021-05- No [id number] 10mg TAKE 1 [facility] N 10 mg 0-19 02-24 TABLET BY ity of tablet 00:00: 00:00 MOUTH AT [place] 00 :00 BEDTIME Medical Branch ROSUVASTATI 2021-05- No [id number] 10mg TAKE 1 [facility] N 10 mg 0-19 02-24 TABLET BY ity of tablet 00:00: 00:00 MOUTH AT [place] 00 :00 BEDTIME Medical Branch ROSUVASTATI 2021-05- No [id number] 10mg TAKE 1 [facility] N 10 mg 0-19 02-24 TABLET BY ity of tablet 00:00: 00:00 MOUTH AT [place] 00 :00 BEDTIME Medical Branch ROSUVASTATI 2021-05- No [id number] 10mg TAKE 1 [facility] N 10 mg 0-19 02-24 TABLET BY ity of tablet 00:00: 00:00 MOUTH AT [place] 00 :00 BEDTIME Medical Branch omeprazole 0 Yes [id number] 20mg Take 1 [facility] 20 mg 5-24 capsule by ity of capsule 00:00: mouth [place] 00 daily. Medical Branch meclizine Yes [id number] 25mg Take 1 [facility] n[facility] 25 mg 5-24 tablet by ity of tablet 00:00: mouth 3 00 (three) Medical times Branch daily as needed for Dizziness. aspirin 81 Yes [id number] 81mg Take 1 [facility] mg chewable 5-24 tablet by ity of tablet 00:00: mouth [place] 00 daily with Medical breakfast. Branch Diclofenac Yes [id number] Apply to [facility] Sodium 5-24 103 area(s) 4 ity of (VOLTAREN) 00:00: (four) [place] 1 % gel 00 times Medical daily. Branch Apply 4 g qid omeprazole 2021-0 Yes [id number] 20mg Take 1 [facility] 20 mg 5-24 capsule by ity of capsule 00:00: mouth [place] 00 daily. Medical Branch meclizine Yes [id number] 25mg Take 1 [facility] nivers 25 mg 5-24 tablet by ity of tablet 00:00: mouth 3 [place] 00 (three) Medical times Branch daily as needed for Dizziness. aspirin 81 2021-0 Yes [id number] 81mg Take 1 [facility] mg chewable 5-24 tablet by ity of tablet 00:00: mouth [place] 00 daily with Medical breakfast. Branch Diclofenac 2021-0 Yes [id number] Apply to [facility] Sodium 5-24 103 area(s) 4 ity of (VOLTAREN) 00:00: (four) [place] 1 % gel 00 times Medical daily. Branch Apply 4 g qid omeprazole 2021-0 Yes [id number] 20mg Take 1 [facility] 20 mg 5-24 capsule by ity of capsule 00:00: mouth [place] 00 daily. Medical Branch meclizine 2021-0 Yes [id number] 25mg Take 1 [facility] nivers 25 mg 5-24 tablet by ity of tablet 00:00: mouth 3 [place] 00 (three) Medical times Branch daily as needed for Dizziness. aspirin 81 2021-0 Yes [id number] 81mg Take 1 [facility] mg chewable 5-24 tablet by ity of tablet 00:00: mouth [place] 00 daily with Medical breakfast. Branch Diclofenac 2021-0 Yes [id number] Apply to [facility] Sodium 5-24 103 area(s) 4 ity of (VOLTAREN) 00:00: (four) [place] 1 % gel 00 times Medical daily. Branch Apply 4 g qid omeprazole 2021-0 Yes [id number] 20mg Take 1 [facility] 20 mg 5-24 capsule by ity of capsule 00:00: mouth [place] 00 daily. Medical Branch meclizine 2021-0 Yes [id number] 25mg Take 1 [facility] nivers 25 mg 5-24 tablet by ity of tablet 00:00: mouth 3 [place] 00 (three) Medical times Branch daily as needed for Dizziness. aspirin 81 2021-0 Yes [id number] 81mg Take 1 [facility] mg chewable 5-24 tablet by ity of tablet 00:00: mouth [place] 00 daily with Medical breakfast. Branch Diclofenac 2021-0 Yes [id number] Apply to [facility] Sodium 5-24 103 area(s) 4 ity of (VOLTAREN) 00:00: (four) [place] 1 % gel 00 times Medical daily. Branch Apply 4 g qid omeprazole 2-0 Yes [id number] 20mg Take 1 [facility] 20 mg 5-24 capsule by ity of capsule 00:00: mouth [place] 00 daily. Medical Branch meclizine 2021-0 Yes [id number] 25mg Take 1 [facility] nivers 25 mg 5-24 tablet by ity of tablet 00:00: mouth 3 [place] 00 (three) Medical times Branch daily as needed for Dizziness. aspirin 81 0 Yes [id number] 81mg Take 1 [facility] mg chewable 5-24 tablet by ity of tablet 00:00: mouth [place] 00 daily with Medical breakfast. Branch Diclofenac 0 Yes [id number] Apply to [facility] Sodium 5-24 103 area(s) 4 ity of (VOLTAREN) 00:00: (four) [place] 1 % gel 00 times Medical daily. Branch Apply 4 g qid omeprazole 0 Yes [id number] 20mg Take 1 [facility] 20 mg 5-24 capsule by ity of capsule 00:00: mouth [place] 00 daily. Medical Branch meclizine 0 Yes [id number] 25mg Take 1 [facility] nivers 25 mg 5-24 tablet by ity of tablet 00:00: mouth 3 [place] 00 (three) Medical times Branch daily as needed for Dizziness. aspirin 81 0 Yes [id number] 81mg Take 1 [facility] mg chewable 5-24 tablet by ity of tablet 00:00: mouth [place] 00 daily with Medical breakfast. Branch Diclofenac 2021-0 Yes [id number] Apply to [facility] Sodium 5-24 103 area(s) 4 ity of (VOLTAREN) 00:00: (four) [place] 1 % gel 00 times Medical daily. Branch Apply 4 g qid omeprazole 2021-0 Yes [id number] 20mg Take 1 [facility] 20 mg 5-24 capsule by ity of capsule 00:00: mouth [place] 00 daily. Medical Branch meclizine 2021-0 Yes [id number] 25mg Take 1 [facility] nivers 25 mg 5-24 tablet by ity of tablet 00:00: mouth 3 [place] 00 (three) Medical times Branch daily as needed for Dizziness. aspirin 81 2021-0 Yes [id number] 81mg Take 1 [facility] mg chewable 5-24 tablet by ity of tablet 00:00: mouth [place] 00 daily with Medical breakfast. Branch Diclofenac 2021-0 Yes [id number] Apply to [facility] Sodium 5-24 103 area(s) 4 ity of (VOLTAREN) 00:00: (four) [place] 1 % gel 00 times Medical daily. Branch Apply 4 g qid omeprazole 2021-0 Yes [id number] 20mg Take 1 [facility] 20 mg 5-24 capsule by ity of capsule 00:00: mouth [place] 00 daily. Medical Branch meclizine 0 Yes [id number] 25mg Take 1 [facility] nivers 25 mg 5-24 tablet by ity of tablet 00:00: mouth 3 [place] 00 (three) Medical times Branch daily as needed for Dizziness. aspirin 81 2021-0 Yes [id number] 81mg Take 1 [facility] mg chewable 5-24 tablet by ity of tablet 00:00: mouth [place] 00 daily with Medical breakfast. Branch Diclofenac 0 Yes [id number] Apply to [facility] Sodium 5-24 103 area(s) 4 ity of (VOLTAREN) 00:00: (four) [place] 1 % gel 00 times Medical daily. Branch Apply 4 g qid omeprazole 0 Yes [id number] 20mg Take 1 [facility] 20 mg 5-24 capsule by ity of capsule 00:00: mouth [place] 00 daily. Medical Branch meclizine 0 Yes [id number] 25mg Take 1 [facility] 25 mg 5-24 tablet by ity of tablet 00:00: mouth 3 [place] 00 (three) Medical times Branch daily as needed for Dizziness. aspirin 81 0 Yes [id number] 81mg Take 1 [facility] mg chewable 5-24 tablet by ity of tablet 00:00: mouth [place] 00 daily with Medical breakfast. Branch Diclofenac 0 Yes [id number] Apply to [facility] Sodium 5-24 103 area(s) 4 ity of (VOLTAREN) 00:00: (four) [place] 1 % gel 00 times Medical daily. Branch Apply 4 g qid omeprazole 2021-0 2022- No [id number] 20mg Take 1 [facility] 20 mg 5-24 02-24 capsule by ity of capsule 00:00: 00:00 mouth [place] 00 :00 daily. Medical Branch meclizine 2021-0 3- No [id number] 25mg Take 1 [facility] 25 mg 5-24 02-24 tablet by ity of tablet 00:00: 00:00 mouth 3 [place] 00 :00 (three) Medical times Branch daily as needed for Dizziness. aspirin 81 2022- No [id number] 81mg Take 1 [facility] mg chewable 5-24 02-24 tablet by it y of tablet 00:00: 00:00 mouth [place] 00 :00 daily with Medical breakfast. Branch Diclofenac 2022- No [id number] Apply to [facility] Sodium 5-24 02-24 103 area(s) 4 ity of (VOLTAREN) 00:00: 00:00 (four) [place] 1 % gel 00 :00 times Medical daily. Branch Apply 4 g qid omeprazole 2022- No [id number] 20mg Take 1 [facility] 20 mg 5-24 02-24 capsule by ity of capsule 00:00: 00:00 mouth [place] 00 :00 daily. Medical Branch meclizine 2022- No [id number] 25mg Take 1 [facility] 25 mg 5-24 02-24 tablet by ity of tablet 00:00: 00:00 mouth 3 [place] 00 :00 (three) Medical times Branch daily as needed for Dizziness. aspirin 81 2022- No [id number] 81mg Take 1 [facility] mg chewable 5-24 02-24 tablet by it y of tablet 00:00: 00:00 mouth [place] 00 :00 daily with Medical breakfast. Branch Diclofenac 2022- No [id number] Apply to [facility] Sodium 5-24 02-24 103 area(s) 4 ity of (VOLTAREN) 00:00: 00:00 (four) [place] 1 % gel 00 :00 times Medical daily. Branch Apply 4 g qid omeprazole 2022- No [id number] 20mg Take 1 [facility] 20 mg 5-24 02-24 capsule by ity of capsule 00:00: 00:00 mouth [place] 00 :00 daily. Medical Branch meclizine 2022- No [id number] 25mg Take 1 [facility] 25 mg 5-24 02-24 tablet by ity of tablet 00:00: 00:00 mouth 3 [place] 00 :00 (three) Medical times Branch daily as needed for Dizziness. aspirin 81 2022- No [id number] 81mg Take 1 [facility] mg chewable 5-24 02-24 tablet by it y of tablet 00:00: 00:00 mouth [place] 00 :00 daily with Medical breakfast. Branch Diclofenac 2022- No [id number] Apply to [facility] Sodium 5-24 - 103 area(s) 4 ity of (VOLTAREN) 00:00: 00:00 (four) [place] 1 % gel 00 :00 times Medical daily. Branch Apply 4 g qid omeprazole 2022- No [id number] 20mg Take 1 [facility] 20 mg -17 07- capsule by ity of capsule 00:00: 00:00 mouth [place] 00 :00 daily. Medical Branch meclizine 2022- No [id number] 25mg Take 1 [facility] 25 mg 5-24 - tablet by ity of tablet 00:00: 00:00 mouth 3 [place] 00 :00 (three) Medical times Branch daily as needed for Dizziness. aspirin 81 2022- No [id number] 81mg Take 1 [facility] mg chewable 10-14 tablet by it y of tablet 00:00: 00:00 mouth [place] 00 :00 daily with Medical breakfast. Branch Diclofenac 2022- No [id number] Apply to [facility] Sodium -24 - 103 area(s) 4 ity of (VOLTAREN) 00:00: 00:00 (four) [place] 1 % gel 00 :00 times Medical daily. Branch Apply 4 g qid ofloxacin Yes [facility] 0.3 % 4-19 ity of ophthalmic 00:00: [place] solution 00 Medical Branch prednisoLON Yes INSTILL 1 [facility] n[facility] E acetate 1 4-19 DROP LEFT ity of % 00:00: EYE THREE [place] ophthalmic 00 TIMES Medical suspension DAILY FOR Bran ch drops 1 WEEK THEN TWICE DAILY FOR 1 WEEK THEN EVERY DAY FOR 1 WEEK ofloxacin Yes [facility] 0.3 % 4-19 ity of ophthalmic 00:00: [place] solution 00 Medical Branch prednisoLON Yes INSTILL 1 [facility] nivers E acetate 1 4-19 DROP LEFT ity of % 00:00: EYE THREE [place] ophthalmic 00 TIMES Medical suspension DAILY FOR Bran ch drops 1 WEEK THEN TWICE DAILY FOR 1 WEEK THEN EVERY DAY FOR 1 WEEK ofloxacin Yes [facility] 0.3 % 4-19 ity of ophthalmic 00:00: [place] solution 00 Medical Branch prednisoLON 0 Yes INSTILL 1 [facility] n[facility] E acetate 1 4-19 DROP LEFT ity of % 00:00: EYE THREE [place] ophthalmic 00 TIMES Medical suspension DAILY FOR Bran ch drops 1 WEEK THEN TWICE DAILY FOR 1 WEEK THEN EVERY DAY FOR 1 WEEK ofloxacin 0 Yes [facility] 0.3 % 4-19 ity of ophthalmic 00:00: [place] solution 00 Medical Branch prednisoLON 0 Yes INSTILL 1 [facility] n[facility] E acetate 1 4-19 DROP LEFT ity of % 00:00: EYE THREE [place] ophthalmic 00 TIMES Medical suspension DAILY FOR Bran ch drops 1 WEEK THEN TWICE DAILY FOR 1 WEEK THEN EVERY DAY FOR 1 WEEK ofloxacin 0 Yes [facility] 0.3 % 4-19 ity of ophthalmic 00:00: [place] solution 00 Medical Branch prednisoLON 0 Yes INSTILL 1 [facility] n[facility] E acetate 1 4-19 DROP LEFT ity of % 00:00: EYE THREE [place] ophthalmic 00 TIMES Medical suspension DAILY FOR Bran ch drops 1 WEEK THEN TWICE DAILY FOR 1 WEEK THEN EVERY DAY FOR 1 WEEK ofloxacin 0 Yes [facility] 0.3 % 4-19 ity of ophthalmic 00:00: [place] solution 00 Medical Branch prednisoLON 0 Yes INSTILL 1 [facility] n[facility] E acetate 1 4-19 DROP LEFT ity of % 00:00: EYE THREE [place] ophthalmic 00 TIMES Medical suspension DAILY FOR Bran ch drops 1 WEEK THEN TWICE DAILY FOR 1 WEEK THEN EVERY DAY FOR 1 WEEK ofloxacin 0 Yes [facility] 0.3 % 4-19 ity of ophthalmic 00:00: [place] solution 00 Medical Branch prednisoLON 0 Yes INSTILL 1 [facility] E acetate 1 4-19 DROP LEFT ity of % 00:00: EYE THREE [place] ophthalmic 00 TIMES Medical suspension DAILY FOR Bran ch drops 1 WEEK THEN TWICE DAILY FOR 1 WEEK THEN EVERY DAY FOR 1 WEEK ofloxacin 0 Yes [facility] 0.3 % 4-19 ity of ophthalmic 00:00: [place] solution 00 Medical Branch prednisoLON 0 Yes INSTILL 1 [facility] n[facility] E acetate 1 4-19 DROP LEFT ity of % 00:00: EYE THREE [place] ophthalmic 00 TIMES Medical suspension DAILY FOR Bran ch drops 1 WEEK THEN TWICE DAILY FOR 1 WEEK THEN EVERY DAY FOR 1 WEEK ofloxacin 0 Yes [facility] 0.3 % 4-19 ity of ophthalmic 00:00: [place] solution 00 Medical Branch prednisoLON 0 Yes INSTILL 1 [facility] n[facility] E acetate 1 4-19 DROP LEFT ity of % 00:00: EYE THREE [place] ophthalmic 00 TIMES Medical suspension DAILY FOR Bran ch drops 1 WEEK THEN TWICE DAILY FOR 1 WEEK THEN EVERY DAY FOR 1 WEEK ofloxacin 0 Yes [facility] 0.3 % 4-19 ity of ophthalmic 00:00: [place] solution 00 Medical Branch prednisoLON 0 Yes INSTILL 1 [facility] n[facility] E acetate 1 4-19 DROP LEFT ity of % 00:00: EYE THREE [place] ophthalmic 00 TIMES Medical suspension DAILY FOR Bran ch drops 1 WEEK THEN TWICE DAILY FOR 1 WEEK THEN EVERY DAY FOR 1 WEEK ofloxacin 0 Yes [facility] 0.3 % 4-19 ity of ophthalmic 00:00: [place] solution 00 Medical Branch prednisoLON 0 Yes INSTILL 1 [facility] n[facility] E acetate 1 4-19 DROP LEFT ity of % 00:00: EYE THREE [place] ophthalmic 00 TIMES Medical suspension DAILY FOR Bran ch drops 1 WEEK THEN TWICE DAILY FOR 1 WEEK THEN EVERY DAY FOR 1 WEEK ofloxacin 0 Yes [facility] 0.3 % 4-19 ity of ophthalmic 00:00: [place] solution 00 Medical Branch prednisoLON 0 Yes INSTILL 1 [facility] n[facility] E acetate 1 4-19 DROP LEFT ity of % 00:00: EYE THREE [place] ophthalmic 00 TIMES Medical suspension DAILY FOR Bran ch drops 1 WEEK THEN TWICE DAILY FOR 1 WEEK THEN EVERY DAY FOR 1 WEEK ofloxacin 0 Yes [facility] 0.3 % 4-19 ity of ophthalmic 00:00: [place] solution 00 Medical Branch prednisoLON 0 Yes INSTILL 1 [facility] E acetate 1 4-19 DROP LEFT ity of % 00:00: EYE THREE [place] ophthalmic 00 TIMES Medical suspension DAILY FOR Bran ch drops 1 WEEK THEN TWICE DAILY FOR 1 WEEK THEN EVERY DAY FOR 1 WEEK ofloxacin 0 Yes [facility] 0.3 % 4-19 ity of ophthalmic 00:00: [place] solution 00 Medical Branch prednisoLON 0 Yes INSTILL 1 [facility] n[facility] E acetate 1 4-19 DROP LEFT ity of % 00:00: EYE THREE [place] ophthalmic 00 TIMES Medical suspension DAILY FOR Bran ch drops 1 WEEK THEN TWICE DAILY FOR 1 WEEK THEN EVERY DAY FOR 1 WEEK ofloxacin 2022-0 Yes [facility] 0.3 % 4-19 ity of ophthalmic 00:00: [place] solution 00 Medical Branch prednisoLON 0 Yes INSTILL 1 [facility] E acetate 1 4-19 DROP LEFT ity of % 00:00: EYE THREE [place] ophthalmic 00 TIMES Medical suspension DAILY FOR Bran ch drops 1 WEEK THEN TWICE DAILY FOR 1 WEEK THEN EVERY DAY FOR 1 WEEK ofloxacin 0 Yes [facility] 0.3 % 4-19 ity of ophthalmic 00:00: [place] solution 00 Medical Branch prednisoLON 0 Yes INSTILL 1 [facility] n[facility] E acetate 1 4-19 DROP LEFT ity of % 00:00: EYE THREE [place] ophthalmic 00 TIMES Medical suspension DAILY FOR Bran ch drops 1 WEEK THEN TWICE DAILY FOR 1 WEEK THEN EVERY DAY FOR 1 WEEK ofloxacin 0 Yes [facility] 0.3 % 4-19 ity of ophthalmic 00:00: [place] solution 00 Medical Branch prednisoLON 0 Yes INSTILL 1 [facility] n[facility] E acetate 1 4-19 DROP LEFT ity of % 00:00: EYE THREE [place] ophthalmic 00 TIMES Medical suspension DAILY FOR Bran ch drops 1 WEEK THEN TWICE DAILY FOR 1 WEEK THEN EVERY DAY FOR 1 WEEK ofloxacin 0 Yes [facility] 0.3 % 4-19 ity of ophthalmic 00:00: [place] solution 00 Medical Branch prednisoLON 0 Yes INSTILL 1 [facility] n[facility] E acetate 1 4-19 DROP LEFT ity of % 00:00: EYE THREE [place] ophthalmic 00 TIMES Medical suspension DAILY FOR Bran ch drops 1 WEEK THEN TWICE DAILY FOR 1 WEEK THEN EVERY DAY FOR 1 WEEK ofloxacin 0 Yes [facility] 0.3 % 4-19 ity of ophthalmic 00:00: [place] solution 00 Medical Branch prednisoLON 0 Yes INSTILL 1 [facility] n[facility] E acetate 1 4-19 DROP LEFT ity of % 00:00: EYE THREE [place] ophthalmic 00 TIMES Medical suspension DAILY FOR Bran ch drops 1 WEEK THEN TWICE DAILY FOR 1 WEEK THEN EVERY DAY FOR 1 WEEK ofloxacin 0 Yes [facility] 0.3 % 4-19 ity of ophthalmic 00:00: [place] solution 00 Medical Branch prednisoLON 0 Yes INSTILL 1 [facility] n[facility] E acetate 1 4-19 DROP LEFT ity of % 00:00: EYE THREE [place] ophthalmic 00 TIMES Medical suspension DAILY FOR Bran ch drops 1 WEEK THEN TWICE DAILY FOR 1 WEEK THEN EVERY DAY FOR 1 WEEK ofloxacin 0 Yes [facility] 0.3 % 4-19 ity of ophthalmic 00:00: [place] solution 00 Medical Branch prednisoLON 2021-0 Yes INSTILL 1 [facility] n[facility] E acetate 1 4-19 DROP LEFT ity of % 00:00: EYE THREE [place] ophthalmic 00 TIMES Medical suspension DAILY FOR Bran ch drops 1 WEEK THEN TWICE DAILY FOR 1 WEEK THEN EVERY DAY FOR 1 WEEK ofloxacin 0 Yes [facility] 0.3 % 4-19 ity of ophthalmic 00:00: [place] solution 00 Medical Branch prednisoLON 0 Yes INSTILL 1 U nivers E acetate 1 4-19 DROP LEFT ity of % 00:00: EYE THREE [place] ophthalmic 00 TIMES Medical suspension DAILY FOR Bran ch drops 1 WEEK THEN TWICE DAILY FOR 1 WEEK THEN EVERY DAY FOR 1 WEEK ofloxacin 0 Yes [facility] 0.3 % 4-19 ity of ophthalmic 00:00: [place] solution 00 Medical Branch prednisoLON 0 Yes INSTILL 1 U n[facility] E acetate 1 4-19 DROP LEFT ity of % 00:00: EYE THREE [place] ophthalmic 00 TIMES Medical suspension DAILY FOR Bran ch drops 1 WEEK THEN TWICE DAILY FOR 1 WEEK THEN EVERY DAY FOR 1 WEEK ofloxacin 0 Yes [facility] 0.3 % 4-19 ity of ophthalmic 00:00: [place] solution 00 Medical Branch prednisoLON 0 Yes INSTILL 1 U nivers E acetate 1 4-19 DROP LEFT ity of % 00:00: EYE THREE [place] ophthalmic 00 TIMES Medical suspension DAILY FOR Bran ch drops 1 WEEK THEN TWICE DAILY FOR 1 WEEK THEN EVERY DAY FOR 1 WEEK ofloxacin 0 Yes [facility] 0.3 % 4-19 ity of ophthalmic 00:00: [place] solution 00 Medical Branch prednisoLON 2021-0 Yes INSTILL 1 U nivers E acetate 1 4-19 DROP LEFT ity of % 00:00: EYE THREE [place] ophthalmic 00 TIMES Medical suspension DAILY FOR Bran ch drops 1 WEEK THEN TWICE DAILY FOR 1 WEEK THEN EVERY DAY FOR 1 WEEK ofloxacin 0 Yes [facility] 0.3 % 4-19 ity of ophthalmic 00:00: [place] solution 00 Medical Branch ofloxacin 2021-0 Yes [facility] 0.3 % 4-19 ity of ophthalmic 00:00: [place] solution 00 Medical Branch ofloxacin 2021-0 Yes [facility] 0.3 % 4-19 ity of ophthalmic 00:00: [place] solution 00 Medical Branch ofloxacin Yes [facility] 0.3 % 4-19 ity of ophthalmic 00:00: [place] solution 00 Medical Branch ofloxacin 0 Yes [facility] 0.3 % 4-19 ity of ophthalmic 00:00: [place] solution 00 Medical Branch prednisoLON 2022- No INSTILL 1 [facility] E acetate 1 09-09 DROP LEFT it y of % 00:00: 00:00 EYE THREE [place] ophthalmic 00 :00 TIMES Medical suspension DAILY FOR Bran ch drops 1 WEEK THEN TWICE DAILY FOR 1 WEEK THEN EVERY DAY FOR 1 WEEK prednisoLON 2022- No INSTILL 1 [facility] E acetate 1 09-09 DROP LEFT it y of % 00:00: 00:00 EYE THREE [place] ophthalmic 00 :00 TIMES Medical suspension DAILY FOR Bran ch drops 1 WEEK THEN TWICE DAILY FOR 1 WEEK THEN EVERY DAY FOR 1 WEEK rosuvastati 0 Yes [id number] 10mg Take 1 [facility] n 10 mg 2-17 tablet by ity of tablet 00:00: mouth at [place] 00 bedtime. Medical Branch hydroCHLORO 0 Yes [id number] 12.5mg Take 1 [facility] thiazide 2-17 tablet by ity of 12.5 mg 00:00: mouth [place] tablet 00 every Medical morning. Branch fluticasone 0 Yes [id number] 2{spray Use 2 [facility] propionate 2-17 } Sprays in ity of 50 00:00: each [place] mcg/actuati 00 nostril Medic al on nasal daily. Branch spray citalopram 0 Yes [id number] 10mg Take 1 [facility] 10 mg 2-17 tablet by ity of tablet 00:00: mouth [place] 00 daily. Medical Branch rosuvastati 0 Yes [id number] 10mg Take 1 [facility] n 10 mg 2-17 tablet by ity of tablet 00:00: mouth at [place] 00 bedtime. Medical Branch hydroCHLORO 0 Yes [id number] 12.5mg Take 1 [facility] thiazide 2-17 tablet by ity of 12.5 mg 00:00: mouth [place] tablet 00 every Medical morning. Branch fluticasone 0 Yes [id number] 2{spray Use 2 [facility] propionate 2-17 } Sprays in ity of 50 00:00: each [place] mcg/actuati 00 nostril Medic al on nasal daily. Branch spray citalopram Yes [id number] 10mg Take 1 [facility] 10 mg 2-17 tablet by ity of tablet 00:00: mouth [place] 00 daily. [facility] rosuvastati Yes [id number] 10mg Take 1 [facility] n 10 mg 2-17 tablet by ity of tablet 00:00: mouth at [place] 00 bedtime. Medical Branch hydroCHLORO Yes [id number] 12.5mg Take 1 [facility] thiazide 2-17 tablet by ity of 12.5 mg 00:00: mouth [place] tablet 00 every Medical morning. [place] fluticasone Yes [id number] 2{spray Use 2 [facility] propionate 2-17 } Sprays in ity of 50 00:00: each [place] mcg/actuati 00 nostril Medic al on nasal daily. [place] spray citalopram Yes [id number] 10mg Take 1 [facility] 10 mg 2-17 tablet by ity of tablet 00:00: mouth [place] 00 daily. [facility] rosuvastati Yes [id number] 10mg Take 1 [facility] n 10 mg 2-17 tablet by ity of tablet 00:00: mouth at [place] 00 bedtime. [facility] hydroCHLORO Yes [id number] 12.5mg Take 1 [facility] thiazide 2-17 tablet by ity of 12.5 mg 00:00: mouth [place] tablet 00 every Medical morning. [place] fluticasone Yes [id number] 2{spray Use 2 [facility] propionate 2-17 } Sprays in ity of 50 00:00: each [place] mcg/actuati 00 nostril Medic al on nasal daily. [place] spray citalopram Yes [id number] 10mg Take 1 [facility] 10 mg 2-17 tablet by ity of tablet 00:00: mouth [place] 00 daily. [facility] rosuvastati Yes [id number] 10mg Take 1 [facility] n 10 mg 2-17 tablet by ity of tablet 00:00: mouth at [place] 00 bedtime. [facility] hydroCHLORO 0 Yes [id number] 12.5mg Take 1 [facility] thiazide 2-17 tablet by ity of 12.5 mg 00:00: mouth [place] tablet 00 every Medical morning. [place] fluticasone Yes [id number] 2{spray Use 2 [facility] propionate 2-17 } Sprays in ity of 50 00:00: each [place] mcg/actuati 00 nostril Medic al on nasal daily. Branch spray citalopram Yes [id number] 10mg Take 1 [facility] 10 mg 2-17 tablet by ity of tablet 00:00: mouth [place] 00 daily. Medical Branch hydroCHLORO 0 Yes [id number] 12.5mg Take 1 [facility] thiazide 2-17 tablet by ity of 12.5 mg 00:00: mouth [place] tablet 00 every Medical morning. Branch fluticasone Yes [id number] 2{spray Use 2 [facility] propionate 2-17 } Sprays in ity of 50 00:00: each [place] mcg/actuati 00 nostril Medic al on nasal daily. Branch spray citalopram Yes [id number] 10mg Take 1 [facility] 10 mg 2-17 tablet by ity of tablet 00:00: mouth [place] 00 daily. Medical Branch hydroCHLORO 0 Yes [id number] 12.5mg Take 1 [facility] thiazide 2-17 tablet by ity of 12.5 mg 00:00: mouth [place] tablet 00 every Medical morning. Branch fluticasone Yes [id number] 2{spray Use 2 [facility] propionate 2-17 } Sprays in ity of 50 00:00: each [place] mcg/actuati 00 nostril Medic al on nasal daily. Branch spray citalopram 0 Yes [id number] 10mg Take 1 [facility] 10 mg 2-17 tablet by ity of tablet 00:00: mouth [place] 00 daily. Medical Branch hydroCHLORO 0 Yes [id number] 12.5mg Take 1 [facility] thiazide 2-17 tablet by ity of 12.5 mg 00:00: mouth [place] tablet 00 every Medical morning. Branch fluticasone 0 Yes [id number] 2{spray Use 2 [facility] propionate 2-17 } Sprays in ity of 50 00:00: each [place] mcg/actuati 00 nostril Medic al on nasal daily. Branch spray citalopram 0 Yes [id number] 10mg Take 1 [facility] 10 mg 2-17 tablet by ity of tablet 00:00: mouth [place] 00 daily. Medical Branch hydroCHLORO 2022-0 Yes [id number] 12.5mg Take 1 [facility] thiazide 2-17 tablet by ity of 12.5 mg 00:00: mouth [place] tablet 00 every Medical morning. Branch fluticasone Yes [id number] 2{spray Use 2 [facility] propionate 2-17 } Sprays in ity of 50 00:00: each [place] mcg/actuati 00 nostril Medic al on nasal daily. Branch spray citalopram Yes [id number] 10mg Take 1 [facility] 10 mg 2-17 tablet by ity of tablet 00:00: mouth [place] 00 daily. Medical Branch fluticasone Yes [id number] 2{spray Use 2 [facility] propionate 2-17 } Sprays in ity of 50 00:00: each [place] mcg/actuati 00 nostril Medic al on nasal daily. Branch spray fluticasone Yes [id number] 2{spray Use 2 [facility] propionate 2-17 } Sprays in ity of 50 00:00: each [place] mcg/actuati 00 nostril Medic al on nasal daily. Branch spray fluticasone Yes [id number] 2{spray Use 2 [facility] propionate 2-17 } Sprays in ity of 50 00:00: each [place] mcg/actuati 00 nostril Medic al on nasal daily. Branch spray fluticasone Yes [id number] 2{spray Use 2 [facility] propionate 2-17 } Sprays in ity of 50 00:00: each [place] mcg/actuati 00 nostril Medic al on nasal daily. Branch spray fluticasone Yes [id number] 2{spray Use 2 [facility] propionate 2-17 } Sprays in ity of 50 00:00: each [place] mcg/actuati 00 nostril Medic al on nasal daily. Branch spray fluticasone Yes [id number] 2{spray Use 2 [facility] propionate 2-17 } Sprays in ity of 50 00:00: each [place] mcg/actuati 00 nostril Medic al on nasal daily. Branch spray fluticasone Yes [id number] 2{spray Use 2 [facility] propionate 2-17 } Sprays in ity of 50 00:00: each [place] mcg/actuati 00 nostril Medic al on nasal daily. Branch spray fluticasone Yes [id number] 2{spray Use 2 [facility] propionate 2-17 } Sprays in ity of 50 00:00: each [place] mcg/actuati 00 nostril Medic al on nasal daily. Branch spray fluticasone Yes [id number] 2{spray Use 2 [facility] propionate 2-17 } Sprays in ity of 50 00:00: each [place] mcg/actuati 00 nostril Medic al on nasal daily. Branch spray fluticasone Yes [id number] 2{spray Use 2 [facility] propionate 2-17 } Sprays in ity of 50 00:00: each [place] mcg/actuati 00 nostril Medic al on nasal daily. Branch spray fluticasone Yes [id number] 2{spray Use 2 [facility] propionate 2-17 } Sprays in ity of 50 00:00: each [place] mcg/actuati 00 nostril Medic al on nasal daily. Branch spray fluticasone Yes [id number] 2{spray Use 2 [facility] propionate 2-17 } Sprays in ity of 50 00:00: each [place] mcg/actuati 00 nostril Medic al on nasal daily. Branch spray fluticasone Yes [id number] 2{spray Use 2 [facility] propionate 2-17 } Sprays in ity of 50 00:00: each [place] mcg/actuati 00 nostril Medic al on nasal daily. Branch spray fluticasone Yes [id number] 2{spray Use 2 [facility] propionate 2-17 } Sprays in ity of 50 00:00: each [place] mcg/actuati 00 nostril Medic al on nasal daily. Branch spray fluticasone Yes [id number] 2{spray Use 2 [facility] propionate 2-17 } Sprays in ity of 50 00:00: each [place] mcg/actuati 00 nostril Medic al on nasal daily. Branch spray fluticasone Yes [id number] 2{spray Use 2 [facility] propionate 2-17 } Sprays in ity of 50 00:00: each [place] mcg/actuati 00 nostril Medic al on nasal daily. Branch spray fluticasone Yes [id number] 2{spray Use 2 [facility] propionate 2-17 } Sprays in ity of 50 00:00: each [place] mcg/actuati 00 nostril Medic al on nasal daily. Branch spray fluticasone Yes [id number] 2{spray Use 2 [facility] propionate 2-17 } Sprays in ity of 50 00:00: each [place] mcg/actuati 00 nostril Medic al on nasal daily. Branch spray fluticasone Yes [id number] 2{spray Use 2 [facility] propionate 2-17 } Sprays in ity of 50 00:00: each [place] mcg/actuati 00 nostril Medic al on nasal daily. Branch spray fluticasone Yes [id number] 2{spray Use 2 [facility] propionate 2-17 } Sprays in ity of 50 00:00: each [place] mcg/actuati 00 nostril Medic al on nasal daily. Branch spray fluticasone Yes [id number] 2{spray Use 2 [facility] propionate 2-17 } Sprays in ity of 50 00:00: each [place] mcg/actuati 00 nostril Medic al on nasal daily. Branch spray fluticasone Yes [id number] 2{spray Use 2 [facility] propionate 2-17 } Sprays in ity of 50 00:00: each [place] mcg/actuati 00 nostril Medic al on nasal daily. Branch spray hydroCHLORO 2022- No [id number] 12.5mg Take 1 [facility] thiazide 2-17 02-24 tablet by ity o f 12.5 mg 00:00: 00:00 mouth [place] tablet 00 :00 every Medical morning. Branch citalopram 2022- No [id number] 10mg Take 1 [facility] 10 mg 2-17 02-24 tablet by ity of tablet 00:00: 00:00 mouth [place] 00 :00 daily. Medical Branch hydroCHLORO 2021-2022- No [id number] 12.5mg Take 1 [facility] thiazide 2-17 02-24 tablet by ity o f 12.5 mg 00:00: 00:00 mouth [place] tablet 00 :00 every Medical morning. Branch citalopram 2022- No [id number] 10mg Take 1 [facility] 10 mg 2-17 02-24 tablet by ity of tablet 00:00: 00:00 mouth [place] 00 :00 daily. Medical Branch hydroCHLORO 2022- No [id number] 12.5mg Take 1 [facility] thiazide 2-17 02-24 tablet by ity o f 12.5 mg 00:00: 00:00 mouth [place] tablet 00 :00 every Medical morning. Branch citalopram 2022- No [id number] 10mg Take 1 [facility] 10 mg 2-17 02-24 tablet by ity of tablet 00:00: 00:00 mouth [place] 00 :00 daily. Medical Branch hydroCHLORO 2022- No [id number] 12.5mg Take 1 [facility] thiazide 2-17 02-24 tablet by ity o f 12.5 mg 00:00: 00:00 mouth [place] tablet 00 :00 every Medical morning. Branch citalopram 2022- No [id number] 10mg Take 1 [facility] 10 mg 2-17 02-24 tablet by ity of tablet 00:00: 00:00 mouth [place] 00 :00 daily. Medical Branch rosuvastati 2021- No [id number] 10mg Take 1 [facility] n 10 mg 2-17 10-19 tablet by ity of tablet 00:00: 00:00 mouth at [place] 00 :00 bedtime. Medical Branch blood sugar Yes [id number] Check [facility] diagnostic 2-18 9101 glucose ity of (ONETOUCH 00:00: once daily [place] ULTRA BLUE 00 before Medical TEST STRIP) breakfast; Br anch strip Diagnosis code E11.9 blood sugar Yes [id number] Check [facility] diagnostic 2-18 9101 glucose ity of (ONETOUCH 00:00: once daily [place] ULTRA BLUE 00 before Medical TEST STRIP) breakfast; Br anch strip Diagnosis code E11.9 blood sugar Yes [id number] Check [facility] diagnostic 2-18 9101 glucose ity of (ONETOUCH 00:00: once daily [place] ULTRA BLUE 00 before Medical TEST STRIP) breakfast; Br anch strip Diagnosis code E11.9 blood sugar Yes [id number] Check [facility] diagnostic 2-18 9101 glucose ity of (ONETOUCH 00:00: once daily [place] ULTRA BLUE 00 before Medical TEST STRIP) breakfast; Br anch strip Diagnosis code E11.9 blood sugar Yes [id number] Check [facility] diagnostic 2-18 9101 glucose ity of (ONETOUCH 00:00: once daily [place] ULTRA BLUE 00 before Medical TEST STRIP) breakfast; Br anch strip Diagnosis code E11.9 blood sugar 2019- Yes [id number] Check [facility] diagnostic 2-18 9101 glucose ity of (ONETOUCH 00:00: once daily [place] ULTRA BLUE 00 before Medical TEST STRIP) breakfast; Br anch strip Diagnosis code E11.9 blood sugar Yes [id number] Check [facility] diagnostic 2-18 9101 glucose ity of (ONETOUCH 00:00: once daily [place] ULTRA BLUE 00 before Medical TEST STRIP) breakfast; Br anch strip Diagnosis code E11.9 blood sugar Yes [id number] Check [facility] diagnostic 2-18 9101 glucose ity of (ONETOUCH 00:00: once daily [place] ULTRA BLUE 00 before Medical TEST STRIP) breakfast; Br anch strip Diagnosis code E11.9 blood sugar 2018- Yes [id number] Check [facility] diagnostic 2-18 9101 glucose ity of (ONETOUCH 00:00: once daily [place] ULTRA BLUE 00 before Medical TEST STRIP) breakfast; Br anch strip Diagnosis code E11.9 blood sugar 2018- 2023- No [id number] Check [facility] diagnostic 2-18 -24 9101 glucose ity o f (ONETOUCH 00:00: 00:00 once daily [place] ULTRA BLUE 00 :00 before Medical TEST STRIP) breakfast; Br anch strip Diagnosis code E11.9 blood sugar 2018- 2023- No [id number] Check [facility] diagnostic 2-18 -24 9101 glucose ity o f (ONETOUCH 00:00: 00:00 once [place] ULTRA BLUE 00 :00 before Medical TEST STRIP) breakfast; Br anch strip Diagnosis code E11.9 blood sugar 2018- 2023- No [id number] Check [facility] diagnostic 2-18 -24 9101 glucose ity o f (ONETOUCH 00:00: 00:00 once daily [place] ULTRA BLUE 00 :00 before Medical TEST STRIP) breakfast; Br anch strip Diagnosis code E11.9 blood sugar 2018-3- No [id number] Check [facility] diagnostic 2-18 -24 9101 glucose ity o f (ONETOUCH 00:00: 00:00 once daily [place] ULTRA BLUE 00 :00 before Medical TEST STRIP) breakfast; Br anch strip Diagnosis code E11.9 Lancets 2018-0 Yes [id number] Check Un osmany Misc 1-18 9101 glucose ity of 00:00: once daily [place] 00 before Medical breakfast, Branch Diagnosis code E11.9 Lancets 2018-0 Yes [id number] Check Un osmany Misc 1-18 9101 glucose ity of 00:00: once daily [place] 00 before Medical breakfast, Branch Diagnosis code E11.9 Lancets 2018- Yes [id number] Check Un osmany Misc 1-18 9101 glucose ity of 00:00: once daily [place] 00 before Medical breakfast, Branch Diagnosis code E11.9 Lancets 2018- Yes [id number] Check Un osmany Misc 1-18 9101 glucose ity of 00:00: once daily [place] 00 before Medical breakfast, Branch Diagnosis code E11.9 Lancets 2018- Yes [id number] Check Un osmany Misc 1-18 9101 glucose ity of 00:00: once daily [place] 00 before Medical breakfast, Branch Diagnosis code E11.9 Lancets 2018- Yes [id number] Check Un osmany Misc 1-18 9101 glucose ity of 00:00: once daily [place] 00 before Medical breakfast, Branch Diagnosis code E11.9 Lancets 2018- Yes [id number] Check Un osmany Misc 1-18 9101 glucose ity of 00:00: once daily [place] 00 before Medical breakfast, Branch Diagnosis code E11.9 Lancets 2018- Yes [id number] Check Un osmany Misc 1-18 9101 glucose ity of 00:00: once daily [place] 00 before Medical breakfast, Branch Diagnosis code E11.9 Lancets 2018- Yes [id number] Check Un osmany Misc 1-18 9101 glucose ity of 00:00: once daily [place] 00 before Medical breakfast, Branch Diagnosis code E11.9 Lancets 2018-3- No [id number] Check U nivers Misc 107-17 9101 glucose ity of 00:00: 00:00 once daily [place] 00 :00 before Medical breakfast, Branch Diagnosis code E11.9 Lancets 2018-3- No [id number] Check U nivers Misc 107-17 9101 glucose ity of 00:00: 00:00 once daily [place] 00 :00 before Medical breakfast, Branch Diagnosis code E11.9 Lancets 2018-3- No [id number] Check U nivers Misc 06-10 9101 glucose ity of 00:00: 00:00 once daily [place] 00 :00 before Medical breakfast, Branch Diagnosis code E11.9 Lancets 2018-0 3- No [id number] Check U nivers Misc 06-10 9101 glucose ity of 00:00: 00:00 once daily [place] 00 :00 before Medical breakfast, Branch Diagnosis code E11.9 Immunizations Ordered Filled Date Status Comments Source Immunization Name Immunization Name Influenza High Dose 2022-04-24 Completed [facility]ity of 00:00:[address] [facility] Influenza High Dose 2022-04-24 Completed [facility] rsity of 00:00:[address] [facility] Influenza High Dose 2022-04-24 Completed [facility] rsity of 00:00:[address] [facility] Influenza High Dose 2022-04-24 Completed [facility] rsity of 00:00:[address] [facility] Influenza High Dose 2022-04-24 Completed [facility] rsity of 00:00:[address] [facility] Influenza High Dose 2022-04-24 Completed [facility]ive rsity of 00:00:[address] [facility] Influenza High Dose 2022-04-24 Completed [facility]ive rsity of 00:00:[address] [facility] Influenza High Dose 2022-04-24 Completed [facility]ive rsity of 00:00:[address] [facility] Influenza High Dose 2022-04-24 Completed [facility]ive rsity of 00:00:[address] [facility] Influenza High Dose 2022-04-24 Completed Unive rsity of 00:00:[address] [facility] Influenza High Dose 2022-04-24 Completed Unive rsity of 00:00:[address] [facility] Influenza High Dose 2022-04-24 Completed Unive rsity of 00:00:[address] [facility] Influenza High Dose 2022-04-24 Completed Unive rsity of 00:00:[address] [facility] Pneumococcal 20 2021-12-17 Completed Universit y of Conjugate, PCV20 00:00:00 [facility] dical (Prevnar 20) Branch Pneumococcal 20 2021-12-17 Completed Universit y of Conjugate, PCV20 00:00:00 [facility] dical (Prevnar 20) Branch Pneumococcal 20 2021-12-17 Completed Universit y of Conjugate, PCV20 00:00:00 [place] [facility] (Prevnar 20) Branch Pneumococcal 20 2021-12-17 Completed Universit y of Conjugate, PCV20 00:00:00 [place] [facility] (Prevnar 20) Branch Pneumococcal 20 2021-12-17 Completed Universit y of Conjugate, PCV20 00:00:00 [facility] dical (Prevnar 20) Branch Pneumococcal 20 2021-12-17 Completed Universit y of Conjugate, PCV20 00:00:00 [place] [facility] (Prevnar 20) Branch Pneumococcal 20 2021-12-17 Completed Universit y of Conjugate, PCV20 00:00:00 [place] [facility] (Prevnar 20) Branch Pneumococcal 20 2021-12-17 Completed Universit y of Conjugate, PCV20 00:00:00 [place] [facility] (Prevnar 20) Branch Pneumococcal 20 2021-12-17 Completed Universit y of Conjugate, PCV20 00:00:00 [facility] dical (Prevnar 20) Branch Pneumococcal 20 2021-12-17 Completed Universit y of Conjugate, PCV20 00:00:00 [facility] dical (Prevnar 20) Branch Pneumococcal 20 2021-12-17 Completed Universit y of Conjugate, PCV20 00:00:00 [facility] dical (Prevnar 20) Branch Pneumococcal 20 2021-12-17 Completed Universit y of Conjugate, PCV20 00:00:00 [facility] dical (Prevnar 20) Branch Pneumococcal 20 2021-12-17 Completed Universit y of Conjugate, PCV20 00:00:00 [place] [facility] dical (Prevnar 20) Branch Pneumococcal 20 2021-12-17 Completed Universit y of Conjugate, PCV20 00:00:00 [place] [facility] (Prevnar 20) Branch Pneumococcal 20 2021-12-17 Completed Universit y of Conjugate, PCV20 00:00:00 [place] [facility] (Prevnar 20) Branch Pneumococcal 20 2021-12-17 Completed Universit y of Conjugate, PCV20 00:00:00 [place] [facility] (Prevnar 20) Branch Pneumococcal 20 2021-12-17 Completed Universit y of Conjugate, PCV20 00:00:00 [facility] dical (Prevnar 20) Branch Pneumococcal 20 2021-12-17 Completed Universit y of Conjugate, PCV20 00:00:00 [facility] dical (Prevnar 20) Branch Pneumococcal 20 2021-12-17 Completed Universit y of Conjugate, PCV20 00:00:00 [facility] dical (Prevnar 20) Branch Pneumococcal 20 2021-12-17 Completed Universit y of Conjugate, PCV20 00:00:00 [facility] dical (Prevnar 20) Branch Pneumococcal 20 2021-12-17 Completed Universit y of Conjugate, PCV20 00:00:00 [facility] dical (Prevnar 20) Branch Pneumococcal 20 2021-12-17 Completed Universit y of Conjugate, PCV20 00:00:00 [facility] dical (Prevnar 20) Branch Zoster Vaccine 2021-10-07 Completed University of Recombinant 00:00:[address] [facility] Zoster Vaccine 2021-10-07 Completed University of Recombinant 00:00:[address] [facility] Zoster Vaccine 2021-10-07 Completed University of Recombinant 00:00:[address] [facility] Zoster Vaccine 2021-10-07 Completed University of Recombinant 00:00:[address] [facility] Zoster Vaccine 2021-10-07 Completed University of Recombinant 00:00:[address] [facility] Zoster Vaccine 2021-10-07 Completed University of Recombinant 00:00:[address] [facility] Zoster Vaccine 2021-10-07 Completed University of Recombinant 00:00:[address] [facility] Zoster Vaccine 2021-10-07 Completed University of Recombinant 00:00:[address] [facility] Zoster Vaccine 2021-10-07 Completed University of Recombinant 00:00:[address] [facility] Zoster Vaccine 2021-10-07 Completed University of Recombinant 00:00:[address] [facility] Zoster Vaccine 2021-10-07 Completed University of Recombinant 00:00:[address] [facility] Zoster Vaccine 2021-10-07 Completed University of Recombinant 00:00:[address] [facility] Zoster Vaccine 2021-10-07 Completed University of Recombinant 00:00:[address] [facility] Zoster Vaccine 2021-10-07 Completed University of Recombinant 00:00:[address] [facility] Zoster Vaccine 2021-08-12 Completed University of Recombinant 00:00:[address] [facility] Zoster Vaccine 2021-08-12 Completed University of Recombinant 00:00:[address] [facility] Zoster Vaccine 2021-08-12 Completed University of Recombinant 00:00:[address] [facility] Zoster Vaccine 2021-08-12 Completed University of Recombinant 00:00:[address] [facility] Zoster Vaccine 2021-08-12 Completed University of Recombinant 00:00:[address] [facility] Zoster Vaccine 2021-08-12 Completed University of Recombinant 00:00:[address] [facility] Zoster Vaccine 2021-08-12 Completed University of Recombinant 00:00:[address] [facility] Zoster Vaccine 2021-08-12 Completed University of Recombinant 00:00:[address] [facility] Zoster Vaccine 2021-08-12 Completed University of Recombinant 00:00:[address] [facility] Zoster Vaccine 2021-08-12 Completed University of Recombinant 00:00:[address] [facility] Zoster Vaccine 2021-08-12 Completed University of Recombinant 00:00:[address] [facility] Zoster Vaccine 2021-08-12 Completed University of Recombinant 00:00:[address] [facility] Zoster Vaccine 2021-08-12 Completed University of Recombinant 00:00:[address] [facility] Zoster Vaccine 2021-08-12 Completed University of Recombinant 00:00:[address] [facility] Influenza Virus 2021-07-10 Completed Universit y of Vaccine,quad 00:00:00 [place] [facility] 65+ Influenza Virus 2021-07-10 Completed Universit y of Vaccine,quad 00:00:00 [place] [facility] 65+ Influenza Virus 2021-07-10 Completed Universit y of Vaccine,quad 00:00:00 [place] [facility] Branch 65+ Influenza Virus 2021-07-10 Completed Universit y of Vaccine,quad 00:00:00 [place] [facility] Branch 65+ Influenza Virus 2021-07-10 Completed Universit y of Vaccine,quad 00:00:00 [place] [facility] Branch 65+ Influenza Virus 2021-07-10 Completed Universit y of Vaccine,quad 00:00:00 [place] [facility] Branch 65+ Influenza Virus 2021-07-10 Completed Universit y of Vaccine,quad 00:00:00 [place] [facility] Branch 65+ Influenza Virus 2021-07-10 Completed Universit y of Vaccine,quad 00:00:00 [place] [facility] Branch 65+ Influenza Virus 2021-07-10 Completed Universit y of Vaccine,quad 00:00:00 [place] [facility] Branch 65+ Influenza Virus 2021-07-10 Completed Universit y of Vaccine,quad 00:00:00 [place] [facility] 65+ Influenza Virus 2021-07-10 Completed Universit y of Vaccine,quad 00:00:00 [place] [facility] Branch 65+ Influenza Virus 2021-07-10 Completed Universit y of Vaccine,quad 00:00:00 [place] [facility] Branch 65+ Influenza Virus 2021-07-10 Completed Universit y of Vaccine,quad 00:00:00 [place] [facility] Branch 65+ Influenza Virus 2021-07-10 Completed Universit y of Vaccine,quad 00:00:00 [place] [facility] Branch 65+ Influenza Virus 2021-07-10 Completed Universit y of Vaccine,quad 00:00:00 [place] [facility] Branch 65+ Influenza Virus 2021-07-10 Completed Universit y of Vaccine,quad 00:00:00 [place] [facility] Branch 65+ Influenza Virus 2021-07-10 Completed Universit y of Vaccine,quad 00:00:00 [place] [facility] Branch 65+ Influenza Virus 2021-07-10 Completed Universit y of Vaccine,quad 00:00:00 [place] [facility] Branch 65+ Influenza Virus 2021-07-10 Completed Universit y of Vaccine,quad 00:00:00 [place] [facility] 65+ Influenza Virus 2021-07-10 Completed Universit y of Vaccine,quad 00:00:00 [place] [facility] Branch 65+ Influenza Virus 2021-07-10 Completed Universit y of Vaccine,quad 00:00:00 [place] [facility] Branch 65+ (FLUAD) Influenza Virus 2021-07-10 Completed Universit y of Vaccine,quad 00:00:00 [place] [facility],preserve Free Branch 65+ (FLUAD) SARS-COV-2 COVID-19 2021-03-31 Completed Unive rsity of MODERNA 0.25ML 00:00:00 [place] [facility] zof[facility] BOOSTER VACCINE Branch SARS-COV-2 COVID-19 2021-03-31 Completed Unive rsity of MODERNA 0.25ML 00:00:00 [place] [facility] BOOSTER VACCINE Branch SARS-COV-2 COVID-19 2021-03-31 Completed Unive rsity of MODERNA 0.25ML 00:00:00 [place] [facility] BOOSTER VACCINE Branch SARS-COV-2 COVID-19 2021-03-31 Completed Unive rsity of MODERNA 0.25ML 00:00:00 [place] [facility] BOOSTER VACCINE Branch SARS-COV-2 COVID-19 2021-03-31 Completed Unive rsity of MODERNA 0.25ML 00:00:00 [place] [facility] z[facility] BOOSTER VACCINE Branch SARS-COV-2 COVID-19 2021-03-31 Completed Unive rsity of MODERNA 0.25ML 00:00:00 [place] [facility] z[facility] BOOSTER VACCINE Branch SARS-COV-2 COVID-19 2021-03-31 Completed Unive rsity of MODERNA 0.25ML 00:00:00 [place] [facility] BOOSTER VACCINE Branch SARS-COV-2 COVID-19 2021-03-31 Completed Unive rsity of MODERNA 0.25ML 00:00:00 [place] [facility] BOOSTER VACCINE Branch SARS-COV-2 COVID-19 2021-03-31 Completed Unive rsity of MODERNA 0.25ML 00:00:00 [place] [facility] BOOSTER VACCINE Branch SARS-COV-2 COVID-19 2021-03-31 Completed Unive rsity of MODERNA 0.25ML 00:00:00 [place] [facility] z[facility] BOOSTER VACCINE Branch SARS-COV-2 COVID-19 2021-03-31 Completed Unive rsity of MODERNA 0.25ML 00:00:00 [place] [facility] z[facility] BOOSTER VACCINE Branch SARS-COV-2 COVID-19 2021-03-31 Completed Unive rsity of MODERNA 0.25ML 00:00:00 [place] [facility] z[facility] BOOSTER VACCINE Branch SARS-COV-2 COVID-19 2021-03-31 Completed Unive rsity of MODERNA 0.25ML 00:00:00 [place] [facility] z[facility] BOOSTER VACCINE Branch SARS-COV-2 COVID-19 2021-03-31 Completed Unive rsity of MODERNA 0.25ML 00:00:00 [place] [facility] z[facility] BOOSTER VACCINE Branch SARS-COV-2 COVID-19 2021-03-31 Completed Unive rsity of MODERNA 0.25ML 00:00:00 [place] [facility] z[facility] BOOSTER VACCINE Branch SARS-COV-2 COVID-19 2021-03-31 Completed Unive rsity of MODERNA 0.25ML 00:00:00 [place] [facility] z[facility] BOOSTER VACCINE Branch SARS-COV-2 COVID-19 2021-03-31 Completed Unive rsity of MODERNA 0.25ML 00:00:00 [place] [facility] z[facility] BOOSTER VACCINE Branch SARS-COV-2 COVID-19 2021-03-31 Completed Unive rsity of MODERNA 0.25ML 00:00:00 [place] [facility] z[facility] BOOSTER VACCINE Branch SARS-COV-2 COVID-19 2021-03-31 Completed Unive rsity of MODERNA 0.25ML 00:00:00 [place] [facility] BOOSTER VACCINE Branch SARS-COV-2 COVID-19 2021-03-31 Completed Unive rsity of MODERNA 0.25ML 00:00:00 [place] [facility] BOOSTER VACCINE Branch SARS-COV-2 COVID-19 2021-03-31 Completed Unive rsity of MODERNA 0.25ML 00:00:00 [place] [facility] z[facility] BOOSTER VACCINE Branch SARS-COV-2 COVID-19 2021-03-31 Completed Unive rsity of MODERNA 0.25ML 00:00:00 [place] [facility] BOOSTER VACCINE Branch SARS-COV-2 COVID-19 2020-07-23 Completed Unive rsity of MODERNA VACCINE 00:00:00 [place] [facility] Branch SARS-COV-2 COVID-19 2020-07-23 Completed Unive rsity of MODERNA VACCINE 00:00:00 [place] [facility] Branch SARS-COV-2 COVID-19 2020-07-23 Completed Unive rsity of MODERNA VACCINE 00:00:00 [place] [facility] Branch SARS-COV-2 COVID-19 2020-07-23 Completed Unive rsity of MODERNA VACCINE 00:00:00 [place] [facility] Branch SARS-COV-2 COVID-19 2020-07-23 Completed Unive rsity of MODERNA 12+ YRS 00:00:00 [place] [facility] VACCINE Branch SARS-COV-2 COVID-19 2020-07-23 Completed Unive rsity of MODERNA 12+ YRS 00:00:00 [place] [facility] VACCINE Branch SARS-COV-2 COVID-19 2020-07-23 Completed Unive rsity of MODERNA 12+ YRS 00:00:00 [place] [facility] VACCINE Branch SARS-COV-2 COVID-19 2020-07-23 Completed Unive rsity of MODERNA 12+ YRS 00:00:00 [place] [facility] ical VACCINE Branch SARS-COV-2 COVID-19 2020-07-23 Completed Unive rsity of MODERNA 12+ YRS 00:00:00 [place] [facility] ical VACCINE Branch SARS-COV-2 COVID-19 2020-07-23 Completed Unive rsity of MODERNA 12+ YRS 00:00:00 [place] [facility] ical VACCINE Branch SARS-COV-2 COVID-19 2020-07-23 Completed Unive rsity of MODERNA 12+ YRS 00:00:00 [place] [facility] ical VACCINE Branch SARS-COV-2 COVID-19 2020-07-23 Completed Unive rsity of MODERNA 12+ YRS 00:00:00 [place] [facility] VACCINE Branch SARS-COV-2 COVID-19 2020-07-23 Completed Unive rsity of MODERNA 12+ YRS 00:00:00 [place] [facility] VACCINE Branch SARS-COV-2 COVID-19 2020-07-23 Completed Unive rsity of MODERNA 12+ YRS 00:00:00 [place] [facility] VACCINE Branch SARS-COV-2 COVID-19 2020-07-23 Completed Unive rsity of MODERNA 12+ YRS 00:00:00 [place] [facility] VACCINE Branch SARS-COV-2 COVID-19 2020-07-23 Completed Unive rsity of MODERNA 12+ YRS 00:00:00 [place] [facility] VACCINE Branch SARS-COV-2 COVID-19 2020-07-23 Completed Unive rsity of MODERNA 12+ YRS 00:00:00 [place] [facility] VACCINE Branch SARS-COV-2 COVID-19 2020-07-23 Completed Unive rsity of MODERNA 12+ YRS 00:00:00 [place] [facility] VACCINE Branch SARS-COV-2 COVID-19 2020-07-23 Completed Unive rsity of MODERNA 12+ YRS 00:00:00 [place] [facility] VACCINE Branch SARS-COV-2 COVID-19 2020-07-23 Completed Unive rsity of MODERNA 12+ YRS 00:00:00 [place] [facility] VACCINE Branch SARS-COV-2 COVID-19 2020-07-23 Completed Unive rsity of MODERNA 12+ YRS 00:00:00 [place] [facility] VACCINE Branch SARS-COV-2 COVID-19 2020-07-23 Completed Unive rsity of MODERNA 12+ YRS 00:00:00 [place] [facility] VACCINE Branch SARS-COV-2 COVID-19 2020-06-25 Completed Unive rsity of MODERNA VACCINE 00:00:00 [place] [facility] Branch SARS-COV-2 COVID-19 2020-06-25 Completed Unive rsity of MODERNA VACCINE 00:00:00 [place] [facility] Branch SARS-COV-2 COVID-19 2020-06-25 Completed Unive rsity of MODERNA VACCINE 00:00:00 [place] [facility] Branch SARS-COV-2 COVID-19 2020-06-25 Completed Unive rsity of MODERNA VACCINE 00:00:00 [place] [facility] Branch SARS-COV-2 COVID-19 2020-06-25 Completed Unive rsity of MODERNA 12+ YRS 00:00:00 [place] [facility] VACCINE Branch SARS-COV-2 COVID-19 2020-06-25 Completed Unive rsity of MODERNA 12+ YRS 00:00:00 [place] [facility] VACCINE Branch SARS-COV-2 COVID-19 2020-06-25 Completed Unive rsity of MODERNA 12+ YRS 00:00:00 [place] [facility] VACCINE Branch SARS-COV-2 COVID-19 2020-06-25 Completed Unive rsity of MODERNA 12+ YRS 00:00:00 [place] [facility] VACCINE Branch SARS-COV-2 COVID-19 2020-06-25 Completed Unive rsity of MODERNA 12+ YRS 00:00:00 [place] [facility] VACCINE Branch SARS-COV-2 COVID-19 2020-06-25 Completed Unive rsity of MODERNA 12+ YRS 00:00:00 [place] [facility] VACCINE Branch SARS-COV-2 COVID-19 2020-06-25 Completed Unive rsity of MODERNA 12+ YRS 00:00:00 [place] [facility] VACCINE Branch SARS-COV-2 COVID-19 2020-06-25 Completed Unive rsity of MODERNA 12+ YRS 00:00:00 [place] [facility] VACCINE Branch SARS-COV-2 COVID-19 2020-06-25 Completed Unive rsity of MODERNA 12+ YRS 00:00:00 [place] [facility] VACCINE Branch SARS-COV-2 COVID-19 2020-06-25 Completed Unive rsity of MODERNA 12+ YRS 00:00:00 [place] [facility] VACCINE Branch SARS-COV-2 COVID-19 2020-06-25 Completed Unive rsity of MODERNA 12+ YRS 00:00:00 [place] [facility] VACCINE Branch SARS-COV-2 COVID-19 2020-06-25 Completed Unive rsity of MODERNA 12+ YRS 00:00:00 [place] [facility] VACCINE Branch SARS-COV-2 COVID-19 2020-06-25 Completed Unive rsity of MODERNA 12+ YRS 00:00:00 [place] [facility] VACCINE Branch SARS-COV-2 COVID-19 2020-06-25 Completed Unive rsity of MODERNA 12+ YRS 00:00:00 [place] [facility] VACCINE Branch SARS-COV-2 COVID-19 2020-06-25 Completed Unive rsity of MODERNA 12+ YRS 00:00:00 [place] [facility] VACCINE Branch SARS-COV-2 COVID-19 2020-06-25 Completed Unive rsity of MODERNA 12+ YRS 00:00:00 [place] [facility] VACCINE Branch SARS-COV-2 COVID-19 2020-06-25 Completed Unive rsity of MODERNA 12+ YRS 00:00:00 [place] [facility] VACCINE Branch SARS-COV-2 COVID-19 2020-06-25 Completed Unive rsity of MODERNA 12+ YRS 00:00:00 [place] [facility] VACCINE Branch Pneumococcal 2020-02-27 Completed University o f Polysaccharide, 00:00:00 [place] [facility] PPSV23 (PNEUMOVAX) Branch Influenza High Dose 2020-02-27 Completed Unive rsity of Quad 00:00:[address] [facility] Pneumococcal 2020-02-27 Completed University o f Polysaccharide, 00:00:00 [place] [facility] PPSV23 (PNEUMOVAX) Branch Influenza High Dose 2020-02-27 Completed Unive rsity of Quad 00:00:[address] [facility] Pneumococcal 2020-02-27 Completed University o f Polysaccharide, 00:00:00 [place] [facility] PPSV23 (PNEUMOVAX) Branch Influenza High Dose 2020-02-27 Completed Unive rsity of Quad 00:00:[address] [facility] Pneumococcal 2020-02-27 Completed University o f Polysaccharide, 00:00:00 [place] [facility] PPSV23 (PNEUMOVAX) Branch Influenza High Dose 2020-02-27 Completed Unive rsity of Quad 00:00:[address] [facility] Pneumococcal 2020-02-27 Completed University o f Polysaccharide, 00:00:00 [place] [facility] PPSV23 (PNEUMOVAX) Branch Influenza High Dose 2020-02-27 Completed Unive rsity of Quad 00:00:[address] [facility] Pneumococcal 2020-02-27 Completed University o f Polysaccharide, 00:00:00 [place] [facility] PPSV23 (PNEUMOVAX) Branch Influenza High Dose 2020-02-27 Completed [facility]ive rsity of Quad 00:00:[address] [facility] Pneumococcal 2020-02-27 Completed University o f Polysaccharide, 00:00:00 [place] [facility] PPSV23 (PNEUMOVAX) Branch Influenza High Dose 2020-02-27 Completed [facility]ive rsity of Quad 00:00:[address] [facility] Pneumococcal 2020-02-27 Completed University o f Polysaccharide, 00:00:00 [place] [facility] PPSV23 (PNEUMOVAX) Branch Influenza High Dose 2020-02-27 Completed [facility]ive rsity of Quad 00:00:[address] [facility] Pneumococcal 2020-02-27 Completed University o f Polysaccharide, 00:00:00 [place] [facility] PPSV23 (PNEUMOVAX) Branch Influenza High Dose 2020-02-27 Completed [facility]ive rsity of Quad 00:00:[address] [facility] Pneumococcal 2020-02-27 Completed University o f Polysaccharide, 00:00:00 [place] [facility] PPSV23 (PNEUMOVAX) Branch Influenza High Dose 2020-02-27 Completed Unive rsity of Quad 00:00:[address] [facility] Pneumococcal 2020-02-27 Completed University o f Polysaccharide, 00:00:00 [place] [facility] PPSV23 (PNEUMOVAX) Branch Influenza High Dose 2020-02-27 Completed [facility]ive rsity of Quad 00:00:[address] [facility] Pneumococcal 2020-02-27 Completed University o f Polysaccharide, 00:00:00 [place] [facility] PPSV23 (PNEUMOVAX) Branch Influenza High Dose 2020-02-27 Completed [facility]ive rsity of Quad 00:00:[address] [facility] Pneumococcal 2020-02-27 Completed University o f Polysaccharide, 00:00:00 [place] [facility] PPSV23 (PNEUMOVAX) Branch Influenza High Dose 2020-02-27 Completed [facility]ive rsity of Quad 00:00:[address] [facility] Pneumococcal 2020-02-27 Completed University o f Polysaccharide, 00:00:00 [place] [facility] PPSV23 (PNEUMOVAX) Branch Influenza High Dose 2020-02-27 Completed Unive rsity of Quad 00:00:[address] [facility] Pneumococcal 2020-02-27 Completed University o f Polysaccharide, 00:00:00 [place] [facility] PPSV23 (PNEUMOVAX) Branch Influenza High Dose 2020-02-27 Completed [facility]ive rsity of Quad 00:00:[address] [facility] Pneumococcal 2020-02-27 Completed University o f Polysaccharide, 00:00:00 [place] [facility] PPSV23 (PNEUMOVAX) Branch Influenza High Dose 2020-02-27 Completed Unive rsity of Quad 00:00:[address] [facility] Pneumococcal 2020-02-27 Completed University o f Polysaccharide, 00:00:00 [place] [facility] PPSV23 (PNEUMOVAX) Branch Influenza High Dose 2020-02-27 Completed [facility]ive rsity of Quad 00:00:[address] [facility] Pneumococcal 2020-02-27 Completed University o f Polysaccharide, 00:00:00 [place] [facility] PPSV23 (PNEUMOVAX) Branch Influenza High Dose 2020-02-27 Completed Unive rsity of Quad 00:00:[address] [facility] Pneumococcal 2020-02-27 Completed University o f Polysaccharide, 00:00:00 [place] [facility] PPSV23 (PNEUMOVAX) Branch Influenza High Dose 2020-02-27 Completed Unive rsity of Quad 00:00:[address] [facility] Pneumococcal 2020-02-27 Completed University o f Polysaccharide, 00:00:00 [place] [facility] PPSV23 (PNEUMOVAX) Branch Influenza High Dose 2020-02-27 Completed Unive rsity of Quad 00:00:[address] [facility] Pneumococcal 2020-02-27 Completed University o f Polysaccharide, 00:00:00 [place] [facility] PPSV23 (PNEUMOVAX) Branch Influenza High Dose 2020-02-27 Completed Unive rsity of Quad 00:00:[address] [facility] Pneumococcal 2020-02-27 Completed University o f Polysaccharide, 00:00:00 [place] [facility] PPSV23 (PNEUMOVAX) Branch Influenza High Dose 2020-02-27 Completed Unive rsity of Quad 00:00:[address] [facility] Influenza Virus 2018-08-18 Completed Universit y of Vaccine Quad .5 mL 00:00:00 [facility] 6+ MO Branch Influenza Virus 2018-08-18 Completed Universit y of Vaccine Quad .5 mL 00:00:00 [facility] IM 6+ MO Branch Influenza Virus 2018-08-18 Completed Universit y of Vaccine Quad .5 mL 00:00:00 [facility] IM 6+ MO Branch Influenza Virus 2018-08-18 Completed Universit y of Vaccine Quad .5 mL 00:00:00 [facility] 6+ MO Branch Influenza Virus 2018-08-18 Completed Universit y of Vaccine Quad .5 mL 00:00:00 [facility] 6+ MO Branch Influenza Virus 2018-08-18 Completed Universit y of Vaccine [facility] .5 mL 00:00:00 [facility] 6+ MO Branch Influenza Virus 2018-08-18 Completed Universit y of Vaccine Quad .5 mL 00:00:00 [facility] 6+ MO Branch Influenza Virus 2018-08-18 Completed Universit y of Vaccine Quad .5 mL 00:00:00 [facility] 6+ MO Branch Influenza Virus 2018-08-18 Completed Universit y of Vaccine Quad .5 mL 00:00:00 [facility] 6+ MO Branch Influenza Virus 2018-08-18 Completed [facility]it y of Vaccine Quad .5 mL 00:00:00 [facility] 6+ MO Branch Influenza Virus 2018-08-18 Completed [facility]it y of Vaccine Quad .5 mL 00:00:00 [facility] 6+ MO Branch Influenza Virus 2018-08-18 Completed Universit y of Vaccine Quad .5 mL 00:00:00 [facility] 6+ MO Branch Influenza Virus 2018-08-18 Completed [facility]it y of Vaccine Quad .5 mL 00:00:00 [facility] 6+ MO Branch Influenza Virus 2018-08-18 Completed [facility]it y of Vaccine Quad .5 mL 00:00:00 [facility] 6+ MO Branch Influenza Virus 2018-08-18 Completed [facility]it y of Vaccine Quad .5 mL 00:00:00 [facility] 6+ MO Branch Influenza Virus 2018-08-18 Completed [facility]it y of Vaccine Quad .5 mL 00:00:00 [facility] 6+ MO Branch Influenza Virus 2018-08-18 Completed [facility]it y of Vaccine Quad .5 mL 00:00:00 [facility] 6+ MO Branch Influenza Virus 2018-08-18 Completed [facility]it y of Vaccine Quad .5 mL 00:00:00 [facility] 6+ MO Branch Influenza Virus 2018-08-18 Completed [facility]it y of Vaccine Quad .5 mL 00:00:00 [facility] 6+ MO Branch Influenza Virus 2018-08-18 Completed [facility]it y of Vaccine Quad .5 mL 00:00:00 [facility] 6+ MO Branch Influenza Virus 2018-08-18 Completed [facility]it y of Vaccine [facility] .5 mL 00:00:00 [facility] 6+ MO Branch (FLUZONE/FLULAVAL/F LUARIX) Influenza Virus 2018-08-18 Completed [facility]it y of Vaccine Quad .5 mL 00:00:00 [facility] 6+ MO Branch (FLUZONE/FLULAVAL/F LUARIX) Influenza High Dose 2018-03-14 Completed Unive rsity of 00:00:[address] [facility] Influenza High Dose 2018-03-14 Completed Unive rsity of 00:00:[address] [facility] Influenza High Dose 2018-03-14 Completed Unive rsity of 00:00:[address] [facility] Influenza High Dose 2018-03-14 Completed Unive rsity of 00:00:[address] [facility] Influenza High Dose 2018-03-14 Completed Unive rsity of 00:00:[address] [facility] Influenza High Dose 2018-03-14 Completed Unive rsity of 00:00:[address] [facility] Influenza High Dose 2018-03-14 Completed Unive rsity of 00:00:[address] [facility] Influenza High Dose 2018-03-14 Completed Unive rsity of 00:00:[address] [facility] Influenza High Dose 2018-03-14 Completed Unive rsity of 00:00:[address] [facility] Influenza High Dose 2018-03-14 Completed Unive rsity of 00:00:[address] [facility] Influenza High Dose 2018-03-14 Completed Unive rsity of 00:00:[address] [facility] Influenza High Dose 2018-03-14 Completed Unive rsity of 00:00:[address] [facility] Influenza High Dose 2018-03-14 Completed Unive rsity of 00:00:[address] [facility] Influenza High Dose 2018-03-14 Completed Unive rsity of 00:00:[address] [facility] Influenza High Dose 2018-03-14 Completed Unive rsity of 00:00:[address] [facility] Influenza High Dose 2018-03-14 Completed Unive rsity of 00:00:[address] [facility] Influenza High Dose 2018-03-14 Completed Unive rsity of 00:00:[address] [facility] Influenza High Dose 2018-03-14 Completed Unive rsity of 00:00:[address] [facility] Influenza High Dose 2018-03-14 Completed Unive rsity of 00:00:[address] [facility] Influenza High Dose 2018-03-14 Completed Unive rsity of 00:00:[address] [facility] Influenza High Dose 2018-03-14 Completed Unive rsity of 00:00:[address] [facility] Influenza High Dose 2018-03-14 Completed Unive rsity of 00:00:[address] [facility] Influenza Virus 2017-03-22 Completed Universit y of Vaccine 00:00:[address] [facility] Pneumococcal 13 2017-03-22 Completed Universit y of Conjugate, PCV13 00:00:00 [facility] dical (Prevnar 13) [place] Influenza Virus 2017-03-22 Completed Universit y of Vaccine 00:00:[address] [facility] Pneumococcal 13 2017-03-22 Completed Universit y of Conjugate, PCV13 00:00:00 [facility] dical (Prevnar 13) [place] Influenza Virus 2017-03-22 Completed Universit y of Vaccine 00:00:[address] [facility] Pneumococcal 13 2017-03-22 Completed Universit y of Conjugate, PCV13 00:00:00 [facility] dical (Prevnar 13) [place] Influenza Virus 2017-03-22 Completed Universit y of Vaccine 00:00:[address] [facility] Pneumococcal 13 2017-03-22 Completed Universit y of Conjugate, PCV13 00:00:00 [facility] dical (Prevnar 13) [place] Influenza Virus 2017-03-22 Completed Universit y of Vaccine 00:00:[address] [facility] Pneumococcal 13 2017-03-22 Completed Universit y of Conjugate, PCV13 00:00:00 [facility] dical (Prevnar 13) [place] Influenza Virus 2017-03-22 Completed Universit y of Vaccine 00:00:[address] [facility] Pneumococcal 13 2017-03-22 Completed Universit y of Conjugate, PCV13 00:00:00 [facility] dical (Prevnar 13) [place] Influenza Virus 2017-03-22 Completed Universit y of Vaccine 00:00:[address] [facility] Pneumococcal 13 2017-03-22 Completed Universit y of Conjugate, PCV13 00:00:00 [facility] dical (Prevnar 13) [place] Influenza Virus 2017-03-22 Completed Universit y of Vaccine 00:00:[address] [facility] Pneumococcal 13 2017-03-22 Completed Universit y of Conjugate, PCV13 00:00:00 [facility] dical (Prevnar 13) [place] Influenza Virus 2017-03-22 Completed Universit y of Vaccine 00:00:[address] [facility] Pneumococcal 13 2017-03-22 Completed Universit y of Conjugate, PCV13 00:00:00 [facility] dical (Prevnar 13) [place] Influenza Virus 2017-03-22 Completed Universit y of Vaccine 00:00:[address] [facility] Pneumococcal 13 2017-03-22 Completed Universit y of Conjugate, PCV13 00:00:00 [facility] dical (Prevnar 13) [place] Influenza Virus 2017-03-22 Completed Universit y of Vaccine 00:00:[address] [facility] Pneumococcal 13 2017-03-22 Completed Universit y of Conjugate, PCV13 00:00:00 [facility] dical (Prevnar 13) [place] Influenza Virus 2017-03-22 Completed Universit y of Vaccine 00:00:[address] [facility] Pneumococcal 13 2017-03-22 Completed Universit y of Conjugate, PCV13 00:00:00 [facility] dical (Prevnar 13) [place] Influenza Virus 2017-03-22 Completed Universit y of Vaccine 00:00:[address] [facility] Pneumococcal 13 2017-03-22 Completed Universit y of Conjugate, PCV13 00:00:00 [facility] dical (Prevnar 13) [place] Influenza Virus 2017-03-22 Completed Universit y of Vaccine 00:00:[address] [facility] Pneumococcal 13 2017-03-22 Completed Universit y of Conjugate, PCV13 00:00:00 [facility] dical (Prevnar 13) [place] Influenza Virus 2017-03-22 Completed Universit y of Vaccine 00:00:[address] [facility] Pneumococcal 13 2017-03-22 Completed Universit y of Conjugate, PCV13 00:00:00 [facility] dical (Prevnar 13) [place] Influenza Virus 2017-03-22 Completed Universit y of Vaccine 00:00:[address] [facility] Pneumococcal 13 2017-03-22 Completed Universit y of Conjugate, PCV13 00:00:00 [facility] dical (Prevnar 13) [place] Influenza Virus 2017-03-22 Completed Universit y of Vaccine 00:00:[address] [facility] Pneumococcal 13 2017-03-22 Completed Universit y of Conjugate, PCV13 00:00:00 [facility] dical (Prevnar 13) [place] Influenza Virus 2017-03-22 Completed Universit y of Vaccine 00:00:[address] [facility] Pneumococcal 13 2017-03-22 Completed Universit y of Conjugate, PCV13 00:00:00 [facility] dical (Prevnar 13) [place] Influenza Virus 2017-03-22 Completed Universit y of Vaccine 00:00:[address] [facility] Pneumococcal 13 2017-03-22 Completed Universit y of Conjugate, PCV13 00:00:00 [facility] dical (Prevnar 13) [place] Influenza Virus 2017-03-22 Completed Universit y of Vaccine 00:00:[address] [facility] Pneumococcal 13 2017-03-22 Completed Universit y of Conjugate, PCV13 00:00:00 [facility] dical (Prevnar 13) [place] Influenza Virus 2017-03-22 Completed Universit y of Vaccine 00:00:[address] [facility] Pneumococcal 13 2017-03-22 Completed Universit y of Conjugate, PCV13 00:00:00 [facility] dical (Prevnar 13) [place] Influenza Virus 2017-03-22 Completed Universit y of Vaccine 00:00:[address] [facility] Pneumococcal 13 2017-03-22 Completed Universit y of Conjugate, PCV13 00:00:00 [facility] dical (Prevnar 13) [place] Influenza Virus 2016-04-07 Completed Universit y of Vaccine Quad IM 3+ 00:00:00 [facility] Influenza Virus 2016-04-07 Completed Universit y of Vaccine [facility] IM 3+ 00:00:00 [facility] Influenza Virus 2016-04-07 Completed Universit y of Vaccine [facility] IM 3+ 00:00:00 [facility] Influenza Virus 2016-04-07 Completed Universit y of Vaccine [facility] IM 3+ 00:00:00 [facility] Influenza Virus 2016-04-07 Completed Universit y of Vaccine [facility] IM 3+ 00:00:00 [facility] Influenza Virus 2016-04-07 Completed Universit y of Vaccine [facility] IM 3+ 00:00:00 [facility] Influenza Virus 2016-04-07 Completed Universit y of Vaccine [facility] IM 3+ 00:00:00 [facility] Influenza Virus 2016-04-07 Completed Universit y of Vaccine [facility] IM 3+ 00:00:00 [facility] Influenza Virus 2016-04-07 Completed Universit y of Vaccine [facility] IM 3+ 00:00:00 [facility] Influenza Virus 2016-04-07 Completed Universit y of Vaccine [facility] IM 3+ 00:00:00 [facility] Influenza Virus 2016-04-07 Completed Universit y of Vaccine [facility] IM 3+ 00:00:00 [facility] Influenza Virus 2016-04-07 Completed Universit y of Vaccine [facility] IM 3+ 00:00:00 [facility] Influenza Virus 2016-04-07 Completed Universit y of Vaccine [facility] IM 3+ 00:00:00 [facility] Influenza Virus 2016-04-07 Completed Universit y of Vaccine [facility] IM 3+ 00:00:00 [facility] Influenza Virus 2016-04-07 Completed Universit y of Vaccine [facility] IM 3+ 00:00:00 [facility] Influenza Virus 2016-04-07 Completed Universit y of Vaccine [facility] IM 3+ 00:00:00 [facility] Influenza Virus 2016-04-07 Completed Universit y of Vaccine [facility] IM 3+ 00:00:00 [facility] Influenza Virus 2016-04-07 Completed Universit y of Vaccine [facility] IM 3+ 00:00:00 [facility] Influenza Virus 2016-04-07 Completed Universit y of Vaccine [facility] IM 3+ 00:00:00 [facility] Influenza Virus 2016-04-07 Completed Universit y of Vaccine [facility] IM 3+ 00:00:00 [facility] Influenza Virus 2016-04-07 Completed Universit y of Vaccine [facility] IM 3+ 00:00:00 [facility] Influenza Virus 2016-04-07 Completed Universit y of Vaccine [facility] IM 3+ 00:00:00 [facility] TDAP 2003-05-24 Completed University of 00:00:[address] [facility] TDAP 2003-05-24 Completed University of 00:00:[address] [facility] TDAP 2003-05-24 Completed University of 00:00:[address] [facility] TDAP 2003-05-24 Completed University of 00:00:[address] [facility] TDAP 2003-05-24 Completed University of 00:00:[address] [facility] TDAP 2003-05-24 Completed University of 00:00:[address] [facility] TDAP 2003-05-24 Completed University of 00:00:[address] [facility] TDAP 2003-05-24 Completed University of 00:00:00 [facility] TDAP 2003-05-24 Completed University of 00:00:[address] [facility] TDAP 2003-05-24 Completed University of 00:00:00 [facility] TDAP 2003-05-24 Completed University of 00:00:00 [facility] TDAP 2003-05-24 Completed University of 00:00:00 [facility] TDAP 2003-05-24 Completed University of 00:00:00 [facility] TDAP 2003-05-24 Completed University of 00:00:00 [facility] TDAP 2003-05-24 Completed University of 00:00:00 [facility] TDAP 2003-05-24 Completed University of 00:00:00 [facility] TDAP 2003-05-24 Completed University of 00:00:00 [facility] TDAP 2003-05-24 Completed University of 00:00:[address] [facility] TDAP 2003-05-24 Completed University of 00:00:[address] [facility] TDAP 2003-05-24 Completed University of 00:00:[address] [facility] TDAP 2003-05-24 Completed University of 00:00:[address] [facility] TDAP 2003-05-24 Completed University of 00:00:[address] [facility] TDAP Unknown Completed University of [facility] Influenza Virus Unknown Completed Universit y of Vaccine [facility] IM 3+ [facility] YRS Branch Influenza Virus Unknown Completed Universit y of Vaccine [facility] Branch Pneumococcal 13 Unknown Completed Universit y of Conjugate, PCV13 [facility] dical (Prevnar 13) Branch Influenza Virus Unknown Completed Universit y of Vaccine Quad .5 mL [facility] IM 6+ MO Branch (FLUZONE/FLULAVAL/F LUARIX) Influenza High Dose Unknown Completed Unive rsity of [facility] Branch Pneumococcal Unknown Completed University o f Polysaccharide, [place] [facility] PPSV23 (PNEUMOVAX) Branch SARS-COV-2 COVID-19 Unknown Completed Unive rsity of MODERNA 12+ YRS [place] [facility] VACCINE Branch SARS-COV-2 COVID-19 Unknown Completed Unive rsity of MODERNA 12+ YRS [place] [facility] VACCINE Branch SARS-COV-2 COVID-19 Unknown Completed Unive rsity of MODERNA 0.25ML [place] [facility] BOOSTER VACCINE Branch Influenza High Dose Unknown Completed Unive rsity of Quad [facility] Branch Influenza Virus Unknown Completed Univers[facility] y of Vaccine,quad [place] [facility],preserve Free Branch 65+ (FLUAD) Pneumococcal 20 Unknown Completed Universit y of Conjugate, PCV20 [place] [facility] (Prevnar 20) Branch Zoster Vaccine Unknown Completed [facility] Zoster Vaccine Unknown Completed [facility] Influenza High Dose Unknown Completed Unive rsity of [facility] TDAP Unknown Completed [facility] Influenza Virus Unknown Completed Universit y of Vaccine [facility] IM 3+ [facility] YRS Branch Influenza Virus Unknown Completed Universit y of Vaccine [facility] Pneumococcal 13 Unknown Completed Universit y of Conjugate, PCV13 [facility] dical (Prevnar 13) Branch Influenza Virus Unknown Completed Universit y of Vaccine Quad .5 mL [facility] 6+ MO Branch (FLUZONE/FLULAVAL/F LUARIX) Influenza High Dose Unknown Completed Unive rsity of [facility] Pneumococcal Unknown Completed University o f Polysaccharide, [place] [facility] PPSV23 (PNEUMOVAX) Branch SARS-COV-2 COVID-19 Unknown Completed Unive rsity of MODERNA 12+ YRS [place] [facility] VACCINE Branch SARS-COV-2 COVID-19 Unknown Completed Unive rsity of MODERNA 12+ YRS [place] [facility] VACCINE Branch SARS-COV-2 COVID-19 Unknown Completed Unive rsity of MODERNA 0.25ML [facility] zofia [facility] VACCINE Branch Influenza High Dose Unknown Completed Unive rsity of [facility] Influenza Virus Unknown Completed [facility] y of Vaccine,quad [place] [facility],preserve Free Branch 65+ (FLUAD) Zoster Vaccine Unknown Completed [facility] Zoster Vaccine Unknown Completed [facility] TDAP Unknown Completed [facility] Influenza Virus Unknown Completed Universit y of Vaccine [facility] IM 3+ [facility] YRS Branch Influenza Virus Unknown Completed Universit y of Vaccine [facility] Pneumococcal 13 Unknown Completed Universit y of Conjugate, PCV13 [facility] dical (Prevnar 13) Branch Influenza Virus Unknown Completed Universit y of Vaccine Quad .5 mL [facility] IM 6+ MO Branch (FLUZONE/FLULAVAL/F LUARIX) Influenza High Dose Unknown Completed Unive rsity of [facility] Pneumococcal Unknown Completed University o f Polysaccharide, [place] [facility] PPSV23 (PNEUMOVAX) Branch SARS-COV-2 COVID-19 Unknown Completed Unive rsity of MODERNA 12+ YRS [place] [facility] VACCINE Branch SARS-COV-2 COVID-19 Unknown Completed Unive rsity of MODERNA 12+ YRS [place] [facility] VACCINE Branch SARS-COV-2 COVID-19 Unknown Completed Unive rsity of MODERNA 0.25ML [place] [facility] BOOSTER VACCINE Branch Influenza High Dose Unknown Completed Unive rsity of Quad [facility] Influenza Virus Unknown Completed [facility] Vaccine,quad [place] [facility],preserve Free Branch 65+ (FLUAD) TDAP Unknown Completed [facility] Influenza Virus Unknown Completed Universit y of Vaccine [facility] IM 3+ [facility] YRS Branch Influenza Virus Unknown Completed [facility]it y of Vaccine [facility] Branch Pneumococcal 13 Unknown Completed Universit y of Conjugate, PCV13 [place] [facility] (Prevnar 13) Branch Influenza Virus Unknown Completed [facility]it y of Vaccine [facility] .5 mL [facility] IM 6+ MO Branch (FLUZONE/FLULAVAL/F LUARIX) Influenza High Dose Unknown Completed Unive rsity of [facility] TDAP Unknown Completed [facility] Influenza Virus Unknown Completed Universit y of Vaccine [facility] IM 3+ [facility] YRS Branch Influenza Virus Unknown Completed [facility]it y of Vaccine [facility] Pneumococcal 13 Unknown Completed Universit y of Conjugate, PCV13 [facility] dical (Prevnar 13) Branch Influenza Virus Unknown Completed Universit y of Vaccine Quad .5 mL [facility] 6+ MO Branch (FLUZONE/FLULAVAL/F LUARIX) Influenza High Dose Unknown Completed Unive rsity of [facility] Pneumococcal Unknown Completed [place] o f Polysaccharide, [facility] ical PPSV23 (PNEUMOVAX) Branch SARS-COV-2 COVID-19 Unknown Completed Unive rsity of MODERNA 12+ YRS [place] [facility] VACCINE Branch SARS-COV-2 COVID-19 Unknown Completed Unive rsity of MODERNA 12+ YRS [place] [facility] VACCINE [facility] SARS-COV-2 COVID-19 Unknown Completed Unive rsity of MODERNA 0.25ML [place] [facility] BOOSTER VACCINE Branch Influenza High Dose Unknown Completed Unive rsity of Quad [facility] Influenza Virus Unknown Completed [facility] Vaccine,quad [place] [facility],preserve Free Branch 65+ (FLUAD) Pneumococcal 20 Unknown Completed [facility]it y of Conjugate, PCV20 [place] [facility] (Prevnar 20) Branch Zoster Vaccine Unknown Completed [facility] Zoster Vaccine Unknown Completed [facility] Influenza High Dose Unknown Completed Unive rsity of [facility] TDAP Unknown Completed [facility] Influenza Virus Unknown Completed [facility]it y of Vaccine [facility] IM 3+ [facility] YRS [facility] Influenza Virus Unknown Completed [facility]it y of Vaccine [facility] Pneumococcal 13 Unknown Completed [facility] y of Conjugate, PCV13 [place] [facility] (Prevnar 13) Branch Influenza Virus Unknown Completed [facility]it y of Vaccine [facility] .5 mL [facility] IM 6+ MO Branch (FLUZONE/FLULAVAL/F LUARIX) Influenza High Dose Unknown Completed Unive rsity of [facility] Pneumococcal Unknown Completed University o f Polysaccharide, [place] [facility] PPSV23 (PNEUMOVAX) Branch SARS-COV-2 COVID-19 Unknown Completed Unive rsity of MODERNA 12+ YRS [place] [facility] VACCINE Branch SARS-COV-2 COVID-19 Unknown Completed Unive rsity of MODERNA 12+ YRS [place] [facility] VACCINE Branch SARS-COV-2 COVID-19 Unknown Completed Unive rsity of MODERNA 0.25ML [facility] zofia BOOSTER VACCINE Branch Influenza High Dose Unknown Completed Unive rsity of [facility] Influenza Virus Unknown Completed [facility] Vaccine,quad [place] [facility],preserve Free Branch 65+ (FLUAD) Pneumococcal 20 Unknown Completed [facility]it y of Conjugate, PCV20 [place] [facility] (Prevnar 20) Branch Zoster Vaccine Unknown Completed [facility] Zoster Vaccine Unknown Completed [facility] Influenza High Dose Unknown Completed Unive rsity [facility] Influenza Virus Unknown Completed [facility] Vaccine,quad [place] [facility],preserve Free Branch 65+ (FLUAD) TDAP Unknown Completed [facility] Influenza Virus Unknown Completed Universit y of Vaccine [facility] IM 3+ [facility] YRS [facility] Influenza Virus Unknown Completed Universit y of Vaccine [facility] Pneumococcal 13 Unknown Completed Universit y of Conjugate, PCV13 [place] [facility] (Prevnar 13) Branch Influenza Virus Unknown Completed Universit y of Vaccine Quad .5 mL [place] [facility] IM 6+ MO Branch (FLUZONE/FLULAVAL/F LUARIX) Influenza High Dose Unknown Completed Unive rsity of [facility] Pneumococcal Unknown Completed University o f Polysaccharide, [place] [facility] PPSV23 (PNEUMOVAX) Branch SARS-COV-2 COVID-19 Unknown Completed Unive rsity of MODERNA 12+ YRS [place] [facility] VACCINE Branch SARS-COV-2 COVID-19 Unknown Completed Unive rsity of MODERNA 12+ YRS [place] [facility] VACCINE Branch SARS-COV-2 COVID-19 Unknown Completed Unive rsity of MODERNA 0.25ML [place] [facility]i zofia BOOSTER VACCINE Branch Influenza High Dose Unknown Completed Unive rsity of Quad [facility] [place] [facility] Influenza Virus Unknown Completed Universit y of Vaccine,quad [place] [facility] Im,preserve Free Branch 65+ (FLUAD) Pneumococcal 20 Unknown Completed Universit y of Conjugate, PCV20 [place] [facility] (Prevnar 20) Branch Zoster Vaccine Unknown Completed [facility] Zoster Vaccine Unknown Completed [facility] Influenza High Dose Unknown Completed Unive rsity of [facility] Influenza Virus Unknown Completed Universit y of Vaccine,quad [place] [facility] Im,preserve Free Branch 65+ (FLUAD) TDAP Unknown Completed [facility] Influenza Virus Unknown Completed Universit y of Vaccine Quad IM 3+ [place] [facility] YRS Branch Influenza Virus Unknown Completed Universit y of Vaccine [facility] Pneumococcal 13 Unknown Completed Universit y of Conjugate, PCV13 [facility] dical (Prevnar 13) Branch Influenza Virus Unknown Completed Universit y of Vaccine Quad .5 mL [place] [facility] IM 6+ MO Branch (FLUZONE/FLULAVAL/F LUARIX) Influenza High Dose Unknown Completed Unive rsity of [facility] Pneumococcal Unknown Completed [place] o f Polysaccharide, [facility] ical PPSV23 (PNEUMOVAX) Branch SARS-COV-2 COVID-19 Unknown Completed Unive rsity of MODERNA 12+ YRS [place] [facility] VACCINE Branch SARS-COV-2 COVID-19 Unknown Completed Unive rsity of MODERNA 12+ YRS [place] [facility] VACCINE Branch SARS-COV-2 COVID-19 Unknown Completed Unive rsity of MODERNA 0.25ML [place] [facility]i zofia BOOSTER VACCINE Branch Influenza High Dose Unknown Completed Unive rsity of Quad [facility] [place] [facility] Influenza Virus Unknown Completed Universit y of Vaccine,quad [place] [facility] Im,preserve Free Branch 65+ (FLUAD) Pneumococcal 20 Unknown Completed Universit y of Conjugate, PCV20 [place] [facility] (Prevnar 20) Branch Zoster Vaccine Unknown Completed [facility] Zoster Vaccine Unknown Completed [facility] Influenza High Dose Unknown Completed Unive rsity of [facility] Influenza Virus Unknown Completed Universit y of Vaccine,quad [place] [facility] Im,preserve Free Branch 65+ (FLUAD) TDAP Unknown Completed [facility] Influenza Virus Unknown Completed Universit y of Vaccine Quad IM 3+ [place] [facility] YRS [facility] Influenza Virus Unknown Completed Universit y of Vaccine [facility] Pneumococcal 13 Unknown Completed Universit y of Conjugate, PCV13 [place] [facility] (Prevnar 13) Branch Influenza Virus Unknown Completed Universit y of Vaccine Quad .5 mL [place] [facility] IM 6+ MO Branch (FLUZONE/FLULAVAL/F LUARIX) Influenza High Dose Unknown Completed Unive rsity of [facility] Pneumococcal Unknown Completed University o f Polysaccharide, [place] [facility] PPSV23 (PNEUMOVAX) Branch SARS-COV-2 COVID-19 Unknown Completed Unive rsity of MODERNA 12+ YRS [place] [facility] VACCINE Branch SARS-COV-2 COVID-19 Unknown Completed Unive rsity of MODERNA 12+ YRS [place] [facility] VACCINE Branch SARS-COV-2 COVID-19 Unknown Completed Unive rsity of MODERNA 0.25ML [facility] zofia BOOSTER VACCINE Branch Influenza High Dose Unknown Completed Unive rsity of Quad [facility] Influenza Virus Unknown Completed Universit y of Vaccine,quad [place] [facility] Im,preserve Free Branch 65+ (FLUAD) Pneumococcal 20 Unknown Completed Universit y of Conjugate, PCV20 [facility] dical (Prevnar 20) Branch Zoster Vaccine Unknown Completed [facility] Zoster Vaccine Unknown Completed [facility] Influenza High Dose Unknown Completed Unive rsity of [facility] Influenza Virus Unknown Completed Universit y of Vaccine,quad [place] [facility] Im,preserve Free Branch 65+ (FLUAD) TDAP Unknown Completed [facility] Influenza Virus Unknown Completed Universit y of Vaccine Quad IM 3+ [place] [facility] YRS [facility] Influenza Virus Unknown Completed Universit y of Vaccine [facility] Pneumococcal 13 Unknown Completed Universit y of Conjugate, PCV13 [place] [facility] (Prevnar 13) Branch Influenza Virus Unknown Completed Universit y of Vaccine Quad .5 mL [place] [facility] IM 6+ MO Branch (FLUZONE/FLULAVAL/F LUARIX) Influenza High Dose Unknown Completed Unive rsity of [facility] Pneumococcal Unknown Completed University o f Polysaccharide, [place] [facility] PPSV23 (PNEUMOVAX) Branch SARS-COV-2 COVID-19 Unknown Completed Unive rsity of MODERNA 12+ YRS [place] [facility] VACCINE Branch SARS-COV-2 COVID-19 Unknown Completed Unive rsity of MODERNA 12+ YRS [place] [facility] VACCINE Branch SARS-COV-2 COVID-19 Unknown Completed Unive rsity of MODERNA 0.25ML [facility] zofia BOOSTER VACCINE Branch Influenza High Dose Unknown Completed Unive rsity of Quad [facility] [place] [facility] Influenza Virus Unknown Completed Universit y of Vaccine,quad [place] [facility] Im,preserve Free Branch 65+ (FLUAD) Pneumococcal 20 Unknown Completed Universit y of Conjugate, PCV20 [facility] dical (Prevnar 20) Branch Zoster Vaccine Unknown Completed University Recombinant [facility] Zoster Vaccine Unknown Completed University of Recombinant [facility] Influenza High Dose Unknown Completed Unive rsity of [facility] Influenza Virus Unknown Completed Universit y of Vaccine,quad [place] [facility] Im,preserve Free Branch 65+ (FLUAD) Vital Signs Vital Name Observation Time Observation Value Comments Source Systolic blood 2023-03-14 17:52:00 139 mm[Hg] Univer sity of pressure [facility] Diastolic blood 2023-03-14 17:52:00 90 mm[Hg] Unive rsity of [facility] Heart rate 2023-03-14 17:52:00 90 /min [facility] Body temperature 2023-03-14 17:52:00 36.72 [facility] Respiratory rate 2023-03-14 17:52:00 18 /[facility] Body height 2023-03-14 17:52:00 165.1 cm [facility] Body weight 2023-03-14 17:52:00 73.029 kg [facility] BMI 2023-03-14 17:52:00 26.79 kg/m2 [facility] Oxygen saturation in 2023-03-14 17:52:00 99 /min [facility] Arterial blood by [facility] Pulse oximetry Branch Systolic blood 2023-02-24 19:17:00 138 mm[Hg] Univer sity of [facility] Diastolic blood 2023-02-24 19:17:00 86 mm[Hg] Unive rsity of pressure [facility] Heart rate 2023-02-24 19:17:00 87 /min Universi ty [facility] Body temperature 2023-02-24 19:17:00 36.33 Isabel [facility] ersity of [place] [facility] Respiratory rate 2023-02-24 19:17:00 18 /min Univ ersity of [place] [facility] Body height 2023-02-24 19:17:00 165.1 cm Universi ty of [place] [facility] Body weight 2023-02-24 19:17:00 74.39 kg Universi ty of [place] [facility] BMI 2023-02-24 19:17:00 27.29 kg/m2 Universi ty of [facility] [place] [facility] Systolic blood 2022-12-29 14:06:00 138 mm[Hg] Univer sity of pressure [facility] Diastolic blood 2022-12-29 14:06:00 82 mm[Hg] Unive rsity of pressure [facility] Heart rate 2022-12-29 14:06:00 68 /min Universi ty of [facility] [place] [facility] Body temperature 2022-12-29 14:06:00 36.61 Isabel Univ ersity of [facility] [place] [facility] Respiratory rate 2022-12-29 14:06:00 18 /min Univ ersity of [facility] Body height 2022-12-29 14:06:00 165.1 cm Universi ty of [facility] [place] [facility] Body weight 2022-12-29 14:06:00 72.757 kg Universi ty of [place] [facility] BMI 2022-12-29 14:06:00 26.69 kg/m2 Universi ty of [place] [facility] Oxygen saturation in 2022-12-29 14:06:00 98 /min University of Arterial blood by [facility] Pulse oximetry Branch Systolic blood 2022-07-17 15:25:00 126 mm[Hg] Univer sity of pressure [facility] [place] [facility] Diastolic blood 2022-07-17 15:25:00 75 mm[Hg] Unive rsity of pressure [facility] [place] [facility] Heart rate 2022-07-17 15:25:00 67 /min Universi ty of [place] [facility] Respiratory rate 2022-07-17 15:25:00 18 /min Univ ersity of [facility] [place] [facility] Body height 2022-07-17 15:25:00 165.1 cm Universi ty of [place] [facility] Body weight 2022-07-17 15:25:00 73.936 kg Universi ty of [place] [facility] BMI 2022-07-17 15:25:00 27.12 kg/m2 Universi ty of [facility] Oxygen saturation in 2022-07-17 15:25:00 99 /min University of Arterial blood by [place] [facility]ofia Pulse oximetry Branch Systolic blood 2022-07-17 15:34:00 126 mm[Hg] Univer sity of pressure [facility] Diastolic blood 2022-07-17 15:34:00 75 mm[Hg] Unive rsity of pressure [facility] Heart rate 2022-07-17 15:34:00 67 /min Universi ty of [facility] [place] [facility] Respiratory rate 2022-07-17 15:34:00 18 /min Univ ersity of [facility] [place] [facility] Body height 2022-07-17 15:34:00 165.1 cm Universi ty of [facility] [place] [facility] Body weight 2022-07-17 15:34:00 73.936 kg Universi ty of [place] [facility] BMI 2022-07-17 15:34:00 27.12 kg/m2 Universi ty of [place] [facility] Oxygen saturation in 2022-07-17 15:34:00 99 /min University of Arterial blood by [facility] Pulse oximetry Branch Systolic blood 2022-05-26 13:00:00 155 mm[Hg] Univer sity of pressure [facility] [place] [facility] Diastolic blood 2022-05-26 13:00:00 90 mm[Hg] Unive rsity of pressure [facility] Heart rate 2022-05-26 13:00:00 72 /min Universi ty of [place] [facility] Body temperature 2022-05-26 13:00:00 37.06 Isabel Univ ersity of [place] [facility] Respiratory rate 2022-05-26 13:00:00 17 /min Univ ersity of [place] [facility] Oxygen saturation in 2022-05-26 13:00:00 98 /min University of Arterial blood by [facility] zofia Pulse oximetry Branch Body height 2022-05-26 10:36:00 165.1 cm Universi ty of [facility] [place] [facility] Body weight 2022-05-26 10:36:00 75.297 kg Universi ty of [place] [facility] BMI 2022-05-26 10:36:00 27.62 kg/m2 Universi ty of [facility] [place] [facility] Systolic blood 2022-01-14 16:03:00 138 mm[Hg] Univer sity of pressure [facility] Diastolic blood 2022-01-14 16:03:00 84 mm[Hg] Unive rsity of pressure [facility] Heart rate 2022-01-14 16:03:00 74 /min [facility] Body weight 2022-01-14 16:03:00 74.844 kg [facility] BMI 2022-01-14 16:03:00 27.46 kg/m2 [facility] Body temperature 2022-01-14 16:01:00 36.94 [facility] Respiratory rate 2022-01-14 16:01:00 18 /min [facility] Body height 2022-01-14 16:01:00 165.1 cm [facility] Oxygen saturation in 2022-01-14 16:01:00 98 /min [facility] Arterial blood by [facility] Pulse oximetry Branch Procedures Procedure Date / Time Performing Clinician Source Performed FLU 2023-02-24 20:39:51 Gustabo Muller [facility] VACC([id number]),65+YR,0 Medical Branch .5 ML,IM,ADJUVANTED,QUAD(F LUAD) CONSENT/REFUSAL FOR 2023-02-05 17:09:00 [facility], [facility] Name Medical Branch REFERRAL- 2022-07-14 06:01:00 Doctor Unassigned, No [facility] REQUEST/RESPONSE Name [facility] XR CHEST 2 VW 2022-05-26 11:43:09 Deya Taylor [facility] RAPID STREP SCREEN FOR 2022-05-26 11:43:00 Deya Taylor [facility] GROUP A [facility] RAPID INFLUENZA A/B 2022-05-26 11:07:00 Deya Taylor [facility] COVID-19 (ID NOW RAPID 2022-05-26 11:07:00 Deya Taylor [facility] TESTING) Medical Branch CONSENT/REFUSAL FOR 2022-05-26 10:26:49 Doctor Unassigned, No [facility] Name [facility] Branch DEXA AXIAL (HIP AND 2022-01-19 13:14:13 Joao Moses [facility] SPINE) Medical Branch GLYCOSYLATED HEMOGLOBIN 2022-01-14 16:50:00 Gustabo Muller [facility] Encounters Start End Encounter Admission Attending Care Care Encounter Source Date/Time Date/Time Type Type Clinicians Facility Department ID 2021-03-24 Emergency [facility] [id number] Univers 12:18:[address] [facility] 2021-03-21 Outpatient JEAN [facility] [id number] Univers 06:59:[address] [facility] 2023-03-31 2023-03-31 [place] Skin Diver 2, Adc Lab [facility] 1.2.840.114 [id number] Univers 10:30:00 10:45:00 Visit Gustabo Muller 350.1.13.10 [place] [id number] [facility] 353 Branch [facility] 2023-03-31 2023-03-31 Out[facility] R [facility] [id number] Univers 10:30:00 10:30:[address] [facility] 2023-03-14 2023-03-14 Urgent Sophia Puldio [facility] 1.2.840.114 [id number] Univers 12:40:00 13:00:00 Care Unknown, Attending HEALTH 350.1.13.10 [place] 4.2.7.2.686 Chance as ELOY?BLEA [id number] [address] MEDICAL OFFICE BUILDING 2023-03-14 2023-03-14 Outpatient Yolande PULIDO [facility] [id number] Univers 12:40:00 12:40:[address] [facility] 2023-03-01 2023-03-01 [facility] 1.2.840.114 [id number] Univers 00:00:00 00:00:00 Gustabo NOE 350.1.13.10 [place] [id number] [facility] 044 Branch BUILDING 2023-02-24 2023-02-24 Outpatient R [facility] [id number] Univers 14:40:00 15:46:[address] [facility] 2023-02-24 2023-02-24 [facility] 1.2.840.114 [id number] Univers 14:40:00 15:46:29 Visit Gustabo NOE 350.1.13.10 i ty of [place] 4.2.[place].2.[place] [id number] Mo dical NAL 044 [facility] 2023-02-23 2023-02-23 [facility] 1.2.840.114 [id number] Univers 00:00:00 00:00:00 Gustabo NOE 350.1.13.10 i ty [place] 4.2.7.2.[place] [id number] [address] 2023-02-05 2023-02-05 Outpatient R [facility] [id number] Univers 12:10:55 23:59:[address] [facility] 2023-02-05 2023-02-05 Hospital [facility] 1.2.840.114 [id number] Univers 12:10:55 23:59:00 Encounter Joao NOE 350.1.13.10 ity of [place] 4.2.7.2.[place] [id number] [facility] [address] 2023-02-05 2023-02-05 Orders Doctor AMRITA 1.2.840.114 [id number] Univers 00:00:00 00:00:00 Only Unassigned, CASEY 350.1.13.10 ity of [place] [facility] 4.2.7.2.686 Chance as [id number] [facility] [address] [place] 2023-01-14 2023-01-14 Outpatient R [facility] [id number] Univers 09:00:00 09:00:[address] [facility] 2022-12-29 2022-12-29 Outpatient R [facility] [id number] Univers 09:00:00 09:46:[address] [facility] 2022-12-29 2022-12-29 [facility] [id number] Univers 09:00:00 09:46:33 Visit Joaoshayy NOE 350.1.13.10 i ty [facility] 4.2.7.2.[place] [id number] Mo marcusal NAL 134 [facility] 2022-12-17 2022-12-17 Outpatient R JEFFREY MEJIA [facility] [id number] Univers 13:30:00 13:30:[address] [facility] 2022-11-11 2022-11-11 Outpatient R JOSUÉ [facility] [id number] Univers 09:00:00 09:00:00 [facility] [place] 2022-11-11 2022-11-11 Outpatient R JOSUÉ [facility] [id number] Univers 09:00:00 09:00:00 [facility] [place] 2022-10-09 2022-10-09 [facility] 1.2.840.114 [id number] Univers 00:00:00 00:00:00 WondiinSelly A [facility] 350.1.13.10 ity of [place] 4.2.7.2.686 Chance as ELOY?BLEA [id number] Mo dave LYONS 044 [facility] 2022-08-11 2022-08-11 Telephone [facility] 1.2.840.114 [id number] Univers 00:00:00 00:00:00 Gustabo NOE 350.1.13.10 i ty [place] 4.2.7.2.[place] [id number] Mo dave NAL 044 [facility] 2022-07-20 2022-07-20 [place] Skin Diver 2, Adc Lab [facility] 1.2.840.114 [id number] Univers 09:30:00 09:45:00 Visit Gustabo Muller 350.1.13.10 ity of [facility] 4.2.7.2.[place] [id number] Mo dave NAL 353 [facility] 2022-07-20 2022-07-20 Outpatient R AB [facility] [id number] Univers 09:30:00 09:30:[address] [facility] 2022-07-20 2022-07-20 Abstract [facility] 1.2.840.114 [id number] Univers 00:00:00 00:00:00 Gustabo MERCEDESSUNIL 350.1.13.10 i ty of [facility] 4.2.7.2.[place] [id number] [address] 2022-07-20 2022-07-20 Abstract [facility] 1.2.840.114 [id number] Univers 00:00:00 00:00:00 Gustabo NOE 350.1.13.10 i [place] 4.2.7.2.[place] [id number] [address] 2022-07-17 2022-07-17 Outpatient R [facility] [id number] Univers 09:00:00 10:12:[address] [facility] 2022-07-17 2022-07-17 Office [facility] 1.2.840.114 [id number] Univers 09:00:00 10:12:20 Visit Gustabo NOE 350.1.13.10 i ty [place] 4.2.7.2.[place] [id number] [address] 2022-07-17 2022-07-17 Office [facility] 1.2.840.114 [id number] Univers 09:40:00 10:00:00 Visit Gustabo NOE 350.1.13.10 i ty of [facility] 4.2.7.2.[place] [id number] [address] 2022-07-14 2022-07-14 Telephone ShaneAugusta [facility] 1.2.840.114 [id number] Univers 00:00:00 00:00:00 Gustabo NOE 350.1.13.10 i ty of [facility] 4.2.7.2.686 [place] [id number] [facility] NAL [address] [place] [address] 2022-07-14 2022-07-14 Orders Doctor AMRITA 1.2.840.114 [id number] Univers 00:00:00 00:00:00 Only Unassigned, CASEY 350.1.13.10 ity of [place] [facility] 4.2.7.2.686 Chance as [id number] [facility] 009 Branch 2022-07-14 2022-07-14 Patient Doctor AMRITA 1.2.840.114 [id number] Univers 00:00:00 00:00:00 Secure Msg Unassigned, CASEY 350.1.13.10 ity of [place] [facility] 4.2.7.2.686 Chance as [id number] [facility] [address] [place] 2022-05-26 2022-05-26 Emergency X [facility] ERT [id number] Univers 04:31:00 07:03:[address] [facility] 2022-05-26 2022-05-26 Emergency [facility] [id number] Univers 04:31:00 07:03:00 Deya NOE 350.1.13.10 ity of [place] 4.2.7.2.686 [place] [id number] [facility] [address] 2022-03-10 2022-03-10 [facility] 1.2.840.114 [id number] Univers 00:00:00 00:00:00 Wondiful A HEALTH 350.1.13.10 ity of [place] 4.2.7.2.686 Chance as ELOY?BLEA [id number] [address] MEDICAL OFFICE BUILDING 2022-02-09 2022-02-09 [facility] 1.2.840.114 [id number] Univers 00:00:00 00:00:00 Gustabo NOE 350.1.13.10 i ty of [place] 4.2.7.2.686 [place] [facility] [id number] [place] [address] Branch BUILDING 2022-01-19 2022-01-19 [facility] 1.2.840.114 [id number] Univers 07:46:41 23:59:00 Encounter Joao NOE 350.1.13.10 ity of [place] [facility].2.7.2.686 [facility] [id number] [facility] [address] 2022-01-19 2022-01-19 Outpatient R [facility] [id number] Univers 07:46:04 23:59:[address] [facility] 2022-01-19 2022-01-19 [facility] 1.2.840.114 [id number] Univers 07:46:04 23:59:00 Encounter Joao NOE 350.1.13.10 ity of [place] 4.2.7.2.686 [place] [facility] [id number] [address] 2022-01-19 2022-01-19 Outpatient R [facility] [id number] Univers 00:00:00 00:00:[address] [facility] 2022-01-14 2022-01-14 [place] Skin Diver 2, Adc Lab [facility] 1.2.840.114 [id number] Univers 13:30:00 13:45:00 Visit Gustabo Muller 350.1.13.10 ity [facility] 4.2.7.2.686 [place] [id number] Mo dical NAL 353 [facility] 2022-01-14 2022-01-14 Outpatient R [facility] [id number] Univers 13:30:00 13:30:[address] [facility] 2022-01-14 2022-01-14 Office [facility] 1.2.840.114 [id number] Univers 10:40:00 11:38:20 Visit Gustabo NOE 350.1.13.10 i ty of [place] 4.2.7.2.686 [place] [id number] Mo dical NAL 044 [facility] 2022-01-14 2022-01-14 Outpatient R [facility] [id number] Univers 10:40:00 11:38:[address] [facility] 2022-01-14 2022-01-14 Orders Doctor CROWE 1.2.840.114 [id number] Univers 00:00:00 00:00:00 Only Unassigned, CASEY 350.1.13.10 ity of [place] [facility] 4.2.7.2.686 Chance as [id number] [address] 2021-12-17 2021-12-17 [facility] 1.2.840.114 [id number] Univers 00:00:00 00:00:00 Gustabo NOE 350.1.13.10 i ty [place] 4.2.7.2.[place] [id number] Mo dical NAL 044 [facility] 2021-12-17 2021-12-17 Orders Doctor AMRITA 1.2.840.114 [id number] Univers 00:00:00 00:00:00 Only Unassigned, CASEY 350.1.13.10 ity of [place] [facility] 4.2.7.2.686 Chance as [id number] [address] 2021-11-10 2021-11-10 Outpatient R JOSUÉ [facility] [id number] Univers 15:30:00 16:35:[address] [facility] 2021-11-10 2021-11-10 [facility] [id number] Univers 15:30:00 16:35:19 Visit Joao NOE 350.1.13.10 i ty [place] 4.2.7.2.686 [place] [id number] Mo dical NAL 134 [facility] 2021-11-10 2021-11-10 Outpatient R [facility] [id number] Univers 15:30:00 15:30:[address] [facility] 2021-10-24 2021-10-24 Patient Doctor AMRITA 1.2.840.114 [id number] Univers 00:00:00 00:00:00 Secure Msg Unassigned, CASEY 350.1.13.10 ity of [place] [facility] 4.2.7.2.686 Chance as [phone] [facility] [address] [place] 2021-10-16 2021-10-16 Outpatient Yolande DE LEON [facility] OPH [id number] Univers 07:10:00 09:26:[address] [facility] 2021-10-16 2021-10-[address] [facility] 1.2.840.114 [id number] Univers 07:10:00 09:26:00 Encounter Fareed NOE 350.1.13.10 ity of [place] [phone] [facility] [address] [place] 2021-10-16 2021-10-16 Outpatient R [facility] OPH [id number] Univers 07:10:00 09:26:[address] [facility] 2021-10-16 2021-10-16 Surgery [facility] 1.2.840.114 [id number] Univers 08:31:00 09:08:00 Fareed NOE 350.1.13.10 i ty [place] [id number] [facility] [address] [place] 2021-10-16 2021-10-16 Anesthesia Tyron López [facility] 1.2.840.11 [id number] Univers 08:36:00 09:01:00 Event Britney Monsalve 350.1 .13.10 ity emanuel [place] [phone] [facility] [address] [place] 2021-10-14 2021-10-14 [facility] [id number] Univers 10:00:00 11:04:[address] [facility] 2021-10-14 2021-10-14 [facility] 1.2.840.114 [id number] Univers 10:00:00 11:04:57 Visit Gustabo NOE 350.1.13.10 i ty of [place] [phone] Mo dical [address] 2021-10-14 2021-10-14 Orders Doctor CROWE 1.2.840.114 [id number] Univers 00:00:00 00:00:00 Only Unassigned, CASEY 350.1.13.10 ity of [place] [facility] 4.2.7.2.686 Chance as [id number] [address] 2021-09-18 2021-09-18 Outpatient R MOISES [facility] OPH [id number] Univers 07:01:00 09:36:[address] [facility] 2021-09-18 2021-09-18 Hospital [facility] 1.2.840.114 [id number] Univers 07:01:00 09:36:00 Encounter Fareed NOE 350.1.13.10 it[place] [phone] [facility] [address] 2021-09-18 2021-09-18 Surgery [facility] 1.2.840.114 [id number] Univers 08:32:00 09:09:00 Fareed NOE 350.1.13.10 i ty of [place] [id number] [facility] [address] 2021-09-18 2021-09-18 Orders Doctor CROWE 1.2.840.114 [id number] Univers 00:00:00 00:00:00 Only UnassignedCASEY 350.1.13.10 ity of [place] [facility] 4.2.7.2.686 Chance as [id number] [address] 2021-09-05 2021-09-05 Hunter Skin Diver Jed, Adc Lab Main [facility] 1.2.8 40.114 [id number] Univers 11:30:00 11:45:00 Visit Fareed De Leon 350.1.1 3.10 ity of [place] [phone] Mo dical [address] 2021-09-05 2021-09-05 Outpatient R MOISES [facility] [id number] Univers 11:30:00 11:30:[address] of [facility] 2021-09-05 2021-09-05 Orders Doctor CROWE 1.2.840.114 [id number] Univers 00:00:00 00:00:00 Only Unassigned, CASEY 350.1.13.10 ity of [place] [facility] 4.2.7.2.686 Chance as [phone] [facility] [address] [place] 2021-07-14 2021-07-14 Patient Doctor AMRITA 1.2.840.114 [id number] [facility] 00:00:00 00:00:00 Secure Msg Unassigned, CASEY 350.1.13.10 ity of [place] [facility] 4.2.7.2.686 Chance as [phone] [facility] [address] [place] 2021-07-10 2021-07-10 Hunter Skin Diver Lab, Ang - Db [facility] 1.2.840.1 [id number] Univers 09:30:00 09:45:00 Visit Marla Vernon HEALTH 350.1.13.1 0 ity of [place] 4.2.7.2.686 Chance as ELOY?BLEA [phone] [facility] [address] [place] MEDICAL OFFICE [facility] 2021-07-10 2021-07-10 Outpatient [facility] [id number] Univers 09:30:00 09:30:[address] ity o f [facility] 2021-07-10 2021-07-10 Office [facility] 1.2.840.114 [id number] Univers 08:30:00 09:28:54 Visit Wonlinda Alfaro HEALTH 350.1.13.10 ity of [place] 4.2.7.2.686 Chance as ELOY?BLEA [phone] [address] MEDICAL OFFICE [facility] 2021-07-10 2021-07-10 Outpatient R [facility] [id number] Univers 08:30:00 09:28:[address] ity o f [facility] 2021-03-31 2021-03-31 Nurse Nurse, Chris Antonio [facility] 1.2.840.114 [id number] Univers 09:56:24 11:13:51 Visit Marla Vernon HEALTH 350.1.13.1 0 ity of [place] 4.2.7.2.686 Chance as ELOY?BLEA [phone] [address] MEDICAL OFFICE BUILDING 2021-03-31 2021-03-31 Outpatient [facility] [id number] Univers 10:20:00 10:20:[address] ity o f [facility] 2021-01-17 2021-01-17 [facility] 1.2.725.355 [id number] Univers 08:40:00 23:59:00 Encounter Wondiful A [place] 350.1.13.10 ity of [place] 4.2.7.2.686 [facility] [phone] [facility] [address] 2021-01-17 2021-01-17 Outpatient R [facility] [id number] Univers 00:00:00 00:00:[address] ity o f [facility] 2021-01-17 2021-01-17 Orders Doctor AMRITA 1.2.840.114 [id number] Univers 00:00:00 00:00:00 Only Unassigned, CASEY 350.1.13.10 ity of [place] [facility] 4.2.7.2.686 Chance as [phone] [facility] [address] 2021-01-06 2021-01-06 Outpatient R [facility] [id number] Univers 08:15:00 08:15:[address] ity o [address] [facility] 2020-12-25 2020-12-25 [facility] 1.2.840.114 [id number] Univers 00:00:00 00:00:00 Wondiful A Health 350.1.13.10 ity of [place] 4.2.7.2.686 Chance as Professio [phone] [facility] [address] Office Building One 2020-12-23 2020-12-23 Emergency [facility] 1.2.450.519 [id number] Univers 02:15:00 03:52:00 Emily S [place] 350.1.13.10 ity of [place] 4.2.7.2.686 [facility] [phone] [facility] [address] 2020-12-23 2020-12-23 Refbalwinder [facility] 1.2.840.114 [id number] Univers 00:00:00 00:00:00 Wondiful A Health 350.1.13.10 ity of [place] 4.2.7.2.686 Chance as Professio [phone] Mo dical nal [address] [place] [address] One 2020-12-23 2020-12-23 Refbalwinder [facility] 1.2.840.114 [id number] Univers 00:00:00 00:00:00 Wondiful A Health 350.1.13.10 ity of [place] 4.2.7.2.686 Chance as Professio [phone] Mo dical nal [address] [place] [address] One 2020-11-25 2020-11-25 [facility] 1.2.840.114 [id number] Univers 00:00:00 00:00:00 Wondiful A Health 350.1.13.10 ity of [place] 4.2.7.2.686 Chance as Professio [phone] [facility] nal [address] [place] [address] One 2020-11-23 2020-11-23 [facility] 1.2.840.114 [id number] Univers 00:00:00 00:00:00 Wondiful A Health 350.1.13.10 ity of [place] 4.2.7.2.686 Chance as Professio [phone] Mo dical nal [address] [place] [address] One 2020-11-19 2020-11-19 [facility] 1.2.840.114 [id number] Univers 00:00:00 00:00:00 Wondiful A Health 350.1.13.10 ity of [place] 4.2.7.2.686 Chance as Professio [phone] Mo dical nal [address] [place] [address] One 2020-10-25 2020-10-25 [facility] 1.2.840.114 [id number] Univers 00:00:00 00:00:00 Wondiful A Health 350.1.13.10 ity of [place] 4.2.7.2.686 Chance as Professio [phone] Mo dical nal [address] [place] [address] One 2020-10-24 2020-10-24 Robina Vernon, [facility] 1.2.840.114 [id number] Univers 00:00:00 00:00:00 Wondiful A Health 350.1.13.10 ity of [place] 4.2.7.2.686 Chance as Professio [phone] Mo dical nal [address] [place] [address] One 2020-10-02 2020-10-02 Robina Vernon, [facility] 1.2.840.114 [id number] Univers 00:00:00 00:00:00 Wondiful A Health 350.1.13.10 ity of [place] 4.2.7.2.686 Chance as Professio [phone] Mo dical nal [address] [place] [address] One 2020-10-02 2020-10-02 Robina Vernon, [facility] 1.2.840.114 [id number] Univers 00:00:00 00:00:00 Wondiful A Health 350.1.13.10 ity of [place] 4.2.7.2.686 Chance as Professio [phone] Mo dical nal [address] [place] [address] One 2020-08-24 2020-08-24 Robina Vernon, [facility] 1.2.840.114 [id number] Univers 00:00:00 00:00:00 Wondiful A Health 350.1.13.10 ity of [place] 4.2.7.2.686 Chance as Professio [phone] Mo dical nal [address] [place] [address] One 2020-08-23 2020-08-23 Robina Vernon, [facility] 1.2.840.114 [id number] Univers 00:00:00 00:00:00 Wondiful A Health 350.1.13.10 ity of [place] 4.2.7.2.686 Chance as Professio [phone] Mo dical nal [address] [place] [address] One 2020-08-22 2020-08-22 Robina Vernon, [facility] 1.2.840.114 [id number] Univers 00:00:00 00:00:00 Wondiful A Health 350.1.13.10 ity of [place] 4.2.7.2.686 Chance as Professio [phone] [address] One 2020-07-30 2020-07-30 [facility] 1.2.840.114 [id number] Univers 00:00:00 00:00:00 Wondiful A Health 350.1.13.10 ity of [place] 4.2.7.2.686 Chance as Professio [phone] [address] One 2020-07-23 2020-07-23 Outpatient R [facility] [id number] Univers 14:40:00 14:40:[address] [facility] 2020-07-02 2020-07-02 [facility] 1.2.840.114 [id number] Univers 00:00:00 00:00:00 Wondiful A Health 350.1.13.10 ity of [place] 4.2.7.2.686 Chance as Professio [id number] [address] One 2020-06-25 2020-06-25 Outpatient R [facility]INT [facility] [id number] Univers 14:40:00 14:40:[address] [facility] 2020-06-18 2020-06-18 [place] [facility] 1.2.840.114 [id number] Univers 00:00:00 00:00:00 Wondiful A Health 350.1.13.10 ity of [place] 4.2.7.2.686 Chance as Professio [phone] [address] One 2020-05-27 2020-05-27 [facility] 1.2.840.114 [id number] Univers 00:00:00 00:00:00 Wondiful A Health 350.1.13.10 ity of [place] 4.2.7.2.686 Chance as Professio [phone] [address] One 2020-04-29 2020-04-29 [facility] 1.2.840.114 [id number] Univers 00:00:00 00:00:00 Wondiful A Health 350.1.13.10 ity of [place] 4.2.7.2.686 Chance as Professio [phone] [address] Office Building One 2020-04-02 2020-04-02 Urgent Provider, Ang [facility] 1.2.840.114 [id number] Univers 08:54:46 09:43:01 Mandy [facility] 350.1.13.10 ity of [place] 4.2.7.2.686 Chance as Professio [phone] [address] Office Building One 2020-04-02 2020-04-02 Outpatient R FE [facility] [id number] Univers 09:00:00 09:00:[address] [facility] 2020-04-01 2020-04-01 Telephone [facility] 1.2.840.114 [id number] Univers 00:00:00 00:00:00 Wondiful A Health 350.1.13.10 ity of [place] 4.2.7.2.686 Chance as Professio [phone] [address] Office Building One 2020-02-27 2020-02-27 Orders Doctor AMRITA 1.2.840.114 [id number] Univers 00:00:00 00:00:00 Only Unassigned, CASEY 350.1.13.10 ity of [place] [facility] 4.2.7.2.686 Chance as [phone] [place] [address] [place] 2019-12-21 2019-12-21 [facility] 1.2.840.114 [id number] Univers 07:13:00 09:17:00 Encounter eAmilcarton 350.1.13.10 ity of [place] [phone] [facility] [address] 2019-12-20 2019-12-20 Outpatient [facility] [id number] Univers 13:45:00 13:45:[address] [facility] 2019-12-20 2019-12-20 Laboratory Only, Adc Test [facility] 1.2.840. 114 [id number] Univers 13:13:15 13:28:15 Only Amilcar Monahan 350.1.1 3.10 ity of [place] 4.2.7.2.686 [facility] [phone] [facility] [address] 2019-12-20 2019-12-20 Orders Doctor CROWE 1.2.840.114 [id number] Univers 00:00:00 00:00:00 Only Unassigned, CASEY 350.1.13.10 ity of [place] [facility] 4.2.7.2.686 Chance as [phone] [facility] [address] 2019-12-20 2019-12-20 Telephone Jean CROWE 1.2.840.114 [id number] Univers 00:00:00 00:00:00 Amilcar barone 350.1.13.10 ity of HOSPITAL 4.2.7.2.686 Chance as [phone] [facility] [address] [place] 2019-12-20 2019-12-20 Telephone Jen CROWE 1.2.416.039 [id number] Univers 00:00:00 00:00:00 ReinierCASEY roper 350.1.13.10 ity of [facility] 4.2.7.2.686 Chance as [id number] [facility] [address] 2019-12-07 2019-12-07 [facility] 1.2.228.935 [id number] Univers 10:33:00 23:59:00 Encounter Wondiful Dominic Noe 350.1.13.10 ity of [place] 4.2.7.2.686 [facility] [phone] [facility] [address] 2019-12-07 2019-12-07 Outpatient R [facility] [id number] Univers 00:00:00 00:00:[address] ity o f [facility] 2019-12-05 2019-12-05 Telephone [facility] 1.2.840.114 [id number] Univers 00:00:00 00:00:00 Wondiful A Otilio 350.1.13.10 ity of [place] [phone] Me dical nal [address] [employer] 2019-12-05 2019-12-05 Orders Doctor AMRITA 1.2.840.114 [id number] Univers 00:00:00 00:00:00 Only Unassigned, CASEY 350.1.13.10 ity of [place] [facility] 4.2.7.2.686 Chance as [phone] [address] 2019-12-02 2019-12-02 Patient Doctor [facility] 1.2.840.114 [id number] Univers 00:00:00 00:00:00 Secure Msg Unassigned, LEAGUE 350.1.13.10 ity of [place].2.[place] [phone] Mo dical AND [address] [facility] 2019-11-30 2019-11-30 Laboratory Lab, Adc Fam Jed I [facility] 1.2. 840.114 [id number] Univers 09:41:41 10:01:41 Only Mandy Schwartz [facility] 350.1.13.10 ity of [place] 4.2.7.2.686 Chance as Professio [phone] Mo dical nal [address] [place] Office Building One 2019-11-30 2019-11-30 Outpatient R [facility] [id number] Univers 09:40:00 09:40:[address] [facility] 2019-11-14 2019-11-14 Hunter Skin Diver Jed, Kosta Lab Main [facility] 1.2.8 40.114 [id number] Univers 09:26:53 09:41:53 Visit Marla [place] 350.1.13. 10 ity of [place].7.2.[place] [phone] Mo dical nal [address] [employer] 2019-11-14 2019-11-14 Outpatient R [facility] [id number] Univers 09:30:00 09:30:[address] ity o f [facility] 2019-11-13 2019-11-13 Office Janeen [facility] 1.2.840.114 [id number] Univers 08:02:34 08:41:09 Visit Marla Noe 350.1.13.10 ity of [place].2.[place] [phone] [address] 2019-11-13 2019-11-13 Outpatient R J[facility]EN [facility] [id number] Univers 08:00:00 08:00:[address] o f [facility] 2019-08-21 2019-08-21 Outpatient R [facility] [id number] Univers 13:00:00 13:00:[address] [facility] 2019-08-19 2019-08-19 [facility]ill [facility] 1.2.840.114 [id number] [facility] 00:00:00 00:00:00 Wondiful A Health 350.1.13.10 ity of [place] 4.2.7.2.686 Chance as Professio [phone] [address] Office [facility] One 2019-01-26 2019-01-26 Office [facility] 1.2.892.971 [id number] [facility] 10:52:28 11:20:11 Visit Matilde Otilio 350.1.13.10 i ty of [place].2.[place] [phone] [facility] [address] [employer] 2019-01-17 2019-01-17 Office [facility] 1.2.840.114 [id number] 348 [facility] 11:08:39 12:18:41 Visit Wondiful A Health 350.1.13.10 ity of [place] 4.2.7.2.686 Chance as Professio [phone] [address] Office [facility] One 2019-01-13 2019-01-13 [facility] 1.2.840.114 [id number] Univers 09:11:00 12:47:00 Encounter Matilde tOilio 350.1.13.10 ity of [place].2.[place] [phone] [address] 2019-01-09 2019-01-09 Orders Doctor CROWE 1.2.840.114 [id number] Univers 00:00:00 00:00:00 Only Unassigned, CASEY 350.1.13.10 ity of [place] [facility] 4.2.7.2.686 Chance as [phone] [place] [address] [place] 2018-12-23 2018-12-23 Prep For Lo [facility] 1.2.840.114 [id number] Univers 00:00:00 00:00:00 Surgery Kathy Noe 350.1.13.10 ity of [place].2.[place] [phone] [address] 2018-12-22 2018-12-22 Office Loy [facility] 1.2.388.529 [id number] 8019 [facility] 09:01:51 10:27:36 Visit Matilde Noe 350.1.13.10 i ty of [place].2.[place] [phone] Mo dic[address] Results This patient has no known results.
[2023-04-06 10:58] LABS: Absolute Lymphocytes (CBC) 1.4 K/uL (0.7-4.9); Hematocrit 40.5 % (36.0-45.0); Lymphocytes % 23.9 % (15.3-44.8); MCV 83.3 fL (80-100); MPV 7.5 fL (7.6-11.3); Platelets 235 thou/uL (152-406); RBC Red Blood Cell Count 4.86 M/uL (3.86-4.86)
[2023-04-06] MEDS ORDERED: METOCLOPRAMIDE 10 MG/2mL INJ ONE (11:17)
[2023-04-06 11:26] LABS: Albumin 3.6 g/dL (3.4-5.0); Bilirubin Total 0.4 mg/dL (0.2-1.0); Potassium 3.7 mEq/L (3.5-5.1); Protein, Total 7.6 g/dL (6.4-8.2)
[2023-04-06 11:41] LABS: Specific Gravity 1.029 (1.005-1.030); Urine Bacteria None Seen /HPF (<20); Urine Bilirubin NEGATIVE (Negative); Urine Blood Trace (Negative); Urine Clarity Turbid (Clear); Urine Color Yellow (Yellow); Urine Glucose NEGATIVE (Negative); Urine Mucus 3+ /HPF (None Seen); Urine Protein TRACE (Negative); Urine RBC <5 /HPF (None Seen); Urine Urobilinogen Normal (Normal); Urine pH 5.5 (5.0-7.0)
--- NOTE | 2023-04-06 12:36 | ER ---
Nurse's Notes [facility] Name: Sneha Grimm Age: 73 yrs Sex: Female : 1950 Arrival Date: 04/06/2023 Time: 10:14 Bed 13 Private MD: Diagnosis: Swallowing Issues;Globus Sensation Presentation: 04/06 10:20 Chief complaint: Patient states: esophageal and epigastric pain, nausea/vomiting for eh3 past month. Pt states whenever she eats, it feels like the food gets stuck in her esophagus and causes pain, then the pain moves into the epigastric area. Pt has intermittent n/v after eating. States last food was toast yesterday AM and did not vomit after. Able to drink fluids without any problem. Coronavirus screen: Vaccine status: Patient reports receiving the 2nd dose of the covid vaccine. Ebola Screen: No symptoms or risks identified at this time. Initial Sepsis Screen: Does the patient meet any 2 criteria? No. Patient's initial sepsis screen is negative. Does the patient have a suspected source of infection? No. Patient's initial sepsis screen is negative. Risk Assessment: Do you want to hurt yourself or someone else? Patient reports no desire to harm self or others. Onset of symptoms was April 06, 2023. 10:20 Method Of Arrival: Ambulatory 3 10:20 Acuity: SAYDA 3 eh3 Triage Assessment: 10:20 General: Appears in no apparent distress. uncomfortable, Behavior is calm, cooperative, eh3 appropriate for age. Pain: Complains of pain in epigastric area. Neuro: Level of Consciousness is awake, alert, obeys commands, Oriented to person, place, time, situation. Cardiovascular: Capillary refill < 3 seconds Patient's skin is warm and dry. Respiratory: Airway is patent Respiratory effort is even, unlabored, Respiratory pattern is regular, symmetrical. GI: Abdomen is round non-distended, Reports upper abdominal pain, nausea. : No signs and/or symptoms were reported regarding the genitourinary system. Derm: Skin is pink, warm \T\ dry. Musculoskeletal: Circulation, motion, and sensation intact. Historical: - Allergies: 10:20 No Known Allergies; eh3 - Immunization history:: Adult Immunizations up to date. - Social history:: Smoking status: Patient denies any tobacco usage or history of. Patient/guardian denies using alcohol. Screenin:20 [facility] ED Fall Risk Assessment (Adult) Score/Fall Risk Level 0 - 2 = Low Risk. Abuse eh3 screen: Denies threats or abuse. Denies injuries from another. Nutritional screening: Has had N/V for 3 or more days. Tuberculosis screening: No symptoms or risk factors identified. Assessment: 10:20 Reassessment: No changes from previously documented assessment. See triage assessment. eh3 11:00 Reassessment: Patient appears in no apparent distress at this time. Patient and/or 3 family updated on plan of care and expected duration. Pain level reassessed. Patient is alert, oriented x 3, equal unlabored respirations, skin warm/dry/pink. 12:00 Reassessment: Patient appears in no apparent distress at this time. Patient and/or 3 family updated on plan of care and expected duration. Pain level reassessed. Patient is alert, oriented x 3, equal unlabored respirations, skin warm/dry/pink. Vital Signs: 10:20 BP 178 / 100; Pulse 63; Resp 18; Temp 98.8(O); Pulse Ox 99% on R/A; Weight 67.13 kg; eh3 Height 5 ft. 6 in. ; Pain 5/10; 10:30 BP 147 / 101; eh3 10:38 BP 127 / 77; eh3 11:00 BP 133 / 76; Pulse 69; Resp 16; Pulse Ox 100% on R/A; eh3 12:00 BP 116 / 70; Pulse 77; Resp 16; Pulse Ox 99% on R/A; eh3 10:20 Body Mass Index 23.89 (67.13 kg, 167.64 cm) eh3 10:20 Pain Scale: Adult 3 ED Course: 10:19 Patient arrived in ED. mr 10:19 Jhon Larios MD is Attending Physician. ec2 10:20 Arm band placed on. eh3 10:20 Patient has correct armband on for positive identification. Bed in low position. Call 3 light in reach. Side rails up X2. Provided Education on: use of call rae. Pulse ox on. NIBP on. Door closed. Noise minimized. Lights dimmed. Warm blanket given. 10:30 Kelley Starr RN is Primary Nurse. eh3 10:48 CBC with Diff Sent. ds4 10:48 CMP Sent. ds4 10:48 Lipase Sent. ds4 10:48 Inserted saline lock: 22 gauge in right antecubital area, using aseptic technique. ds4 Blood collected. 10:54 Triage completed. eh3 12:36 Dino La MD is Referral Physician. ec2 12:43 No provider procedures requiring assistance completed. IV discontinued, intact, eh3 bleeding controlled, No redness/swelling at site. Pressure dressing applied. Administered Medications: 11:20 Drug: metoCLOPramide IVP 10 mg IVP once; over 1 to 2 minutes Route: IVP; Site: right eh3 antecubital; 11:43 Follow up: Response: No adverse reaction eh3 Medication: 12:44 VIS not applicable for this client. eh3 Outcome: 12:36 Discharge ordered by . ec2 12:44 Discharged to home ambulatory, eh3 12:44 Condition: stable 12:44 Discharge instructions given to patient, Instructed on discharge instructions, follow up and referral plans. medication usage, Demonstrated understanding of instructions, follow-up care, medications, Prescriptions given X 1, 12:52 Patient left the ED. eh3 Signatures: Claire Dent, Reg Reg Franck Jackson ds4 Kelley Starr RN RN eh3 Jhon Larios MD MD ec2
--- NOTE | 2023-04-06 12:36 | EDPHYS ---
Physician Documentation [facility] Name: Sneha Grimm Age: 73 yrs Sex: Female : 1950 Arrival Date: 04/06/2023 Time: 10:14 Bed 13 Private MD: ED Physician Jhon Larios HPI: 04/06 10:30 This 73 yrs old Black Female presents to ER via Unassigned with complaints of Abdominal ec2 Pain. 10:30 Patient arrives today with a history of hypertension and diabetes due to concern for ec2 globus sensation when she eats. States that frequently when she eats she has issues with swallowing and keeping food down. States that she swallows and several seconds to minutes afterwards she feels a sensation in her chest and occasionally throws it up. States that she has been drinking primarily liquids and avoiding solids due to the frequency of this. Patient reports history of hypertension and diabetes. Denies any issues with stools. States that she had an endoscopy 3 years ago with GI where she was diagnosed with a hernia.. Historical: - Allergies: 10:20 No Known Allergies; eh3 - Immunization history:: Adult Immunizations up to date. - Social history:: Smoking status: Patient denies any tobacco usage or history of. Patient/guardian denies using alcohol. ROS: 10:30 Constitutional: as per hpi ec2 Exam: 10:30 Constitutional: GEN: NAD Head: atraumatic Eyes: EOMI Ears: External ears are ec2 normal. CV: regular rate LUNGS: no respiratory distress ABD: non-distended SKIN: no evidence of rashes MSK: no evidence of trauma NEURO: moves all extremities equally Vital Signs: 10:20 BP 178 / 100; Pulse 63; Resp 18; Temp 98.8(O); Pulse Ox 99% on R/A; Weight 67.13 kg; eh3 Height 5 ft. 6 in. ; Pain 5/10; 10:30 BP 147 / 101; eh3 10:38 BP 127 / 77; eh3 11:00 BP 133 / 76; Pulse 69; Resp 16; Pulse Ox 100% on R/A; eh3 12:00 BP 116 / 70; Pulse 77; Resp 16; Pulse Ox 99% on R/A; eh3 10:20 Body Mass Index 23.89 (67.13 kg, 167.64 cm) eh3 10:20 Pain Scale: Adult eh3 MDM: 10:19 Patient medically screened. ec2 10:30 ED course: Patient arrives today for evaluation of issues with swallowing and globus ec2 sensation. Examination remarkable for well-appearing nontoxic individual who is managing her secretions well and is in no acute distress. Will obtain lab work to evaluate for electrolyte disturbances given the patient's poor p.o. intake. Ultimately patient will require a GI referral to further evaluate the patient's complaint. Possible she has process such as a Schlotzky's ring or esophageal web causing her symptoms, additionally considering esophageal spasm, I have a low suspicion for ACS or PE.. 11:29 ED course: CBC is reassuring. Metabolic profile with appropriate electrolytes and some ec2 diminished renal function noted. Lipase is within normal ranges. . 11:48 Data reviewed: vital signs. ED course: Urine is noninfectious appearing. . ec2 12:35 ED course: On reassessment patient with improving symptoms,'s reports no nausea. Will ec2 discharge home with prescription with antiemetic and have her follow-up with a GI doctor. Return precautions given.. 04/06 10:30 Order name: CBC with Diff; Complete Time: 11:28 ec2 04/06 10:30 Order name: CMP; Complete Time: 11:28 ec2 04/06 10:42 Order name: Lipase; Complete Time: 11:28 ec2 04/06 10:42 Order name: UAM; Complete Time: 11:48 ec2 04/06 10:30 Order name: IV Saline Lock; Complete Time: 10:48 ec2 04/06 10:30 Order name: Labs collected and sent; Complete Time: 10:48 ec2 Administered Medications: 11:20 Drug: metoCLOPramide IVP 10 mg IVP once; over 1 to 2 minutes Route: IVP; Site: right 3 antecubital; 11:43 Follow up: Response: No adverse reaction eh3 Disposition Summary: 04/06/23 12:36 Discharge Ordered Notes: Location: Home ec2 Condition: Stable ec2 Diagnosis - Swallowing Issues ec2 - Globus Sensation ec2 Followup: ec2 - With: Dino La MD - When: - Reason: Recheck today's complaints Discharge Instructions: - Discharge Summary Sheet ec2 - Dysphagia Eating Plan, Pureed ec2 Forms: - Medication Reconciliation Form ec2 - Thank You Letter ec2 - Antibiotic Education ec2 - Prescription Opioid Use ec2 - Patient Portal Instructions ec2 - Leadership Thank You Letter ec2 Prescriptions: - Zofran 4 mg Oral Tablet - take 1 tablet ORAL route every 12 hours As needed; 20 tablet; Refills: 0, ec2 Product Selection Permitted Signatures: Dispatcher [employer] Kelley Gilliam RN RN [facility] Jhon Larios MD MD ec2 Corrections: (The following items were deleted from the chart) 11:49 10:30 ED course: Patient arrives today for evaluation of issues with swallowing and ec2 globus sensation. Examination remarkable for well-appearing nontoxic individual with managing her secretions well and is in no acute distress. Will obtain lab work to evaluate for electrolyte disturbances given the patient's poor p.o. intake. Ultimately patient will require a GI referral to further evaluate the patient's complaint. Possible she has process such as a Schlotzky's ring or esophageal web causing her symptoms, I have a low suspicion for ACS or PE.. ec2 11:49 10:30 Patient arrives today with a history of hypertension and diabetes due to concern ec2 for globus sensation when she eats. States that frequently when she eats she has issues with swallowing and keeping food down. States that she swallows and several seconds to minutes afterwards she feels a sensation in her chest and occasionally throws it up. States that she has been reverting drinking primarily liquids and avoiding solids due to the frequency of this. Patient reports history of hypertension and diabetes. Denies any issues with stools. States that she had an endoscopy 3 years ago with GI where she was diagnosed with a hernia.. ec2
[2023-04-06 13:04] VITALS: TEMP 98.8
[2023-04-06 13:23] VITALS: BP 116/70; O2SAT 99
== END 2023-04-06 12:52 | disposition home or self-care (01) ==
LOC: ER 10:14
DX: F45.8 Other somatoform disorders (principal); E11.9 Type 2 diabetes mellitus without complications; I10 Essential (primary) hypertension
CPT/HCPCS: 85025; 81001; 36415; 83690; 80053; 96374; 99284; J2765